=== PATIENT | female | born 1930 | race Hispanic/Latino ===

== ENCOUNTER 2017-04-06 19:00 | Emergency (ER) | payer MEDICARE ==
[2017-04-06 19:31] VITALS: BMI 34.7
[2017-04-06 19:38] VITALS: TEMP 98.7
[2017-04-06] MEDS ORDERED: Sodium Chloride 0.9% 500 ML IV STA (20:17)
--- NOTE | 2017-04-06 20:33 | ED PDOC ---
Arrival/HPI - General Chief Complaint: Abdominal Pain Time Seen by Provider: 04/06/17 20:17 Historian: Patient - History of Present Illness Narrative History of Present Illness (Text): 04/06/17 20:29 Shena Turcios is an 86 year old female, whose past medical history includes diverticulitis, who presents to the emergency department complaining of worsening flank pain today. Patient denies any urinary complaint, nausea, diarrhea, chest pain, shortness of breath, or any other complaints at this time. Time/Duration: 4-6 hours Symptom Onset: Gradual Symptom Course: Worsening Severity Level: Mild Context: Home Past Medical History - Provider Review Nursing Documentation Reviewed: Yes - Infectious Disease Hx of Infectious Diseases: None - Tetanus Immunization Tetanus Immunization: Unknown - Reproductive Menopause: Yes - Cardiac Hx [place]: Yes Hx Peripheral Vascular Disease: Yes - Neurological Hx Paralysis: No - Hematological/Oncological Hx Blood Transfusions: No - Musculoskeletal/Rheumatological Hx Musculoskeletal Disorders: Yes - Gastrointestinal Hx Diverticulitis: Yes - Psychiatric Hx Substance Use: No - Past Surgical History Past Surgical History: No Previous - Surgical History Other/Comment: R leg bypass - Anesthesia Hx Anesthesia Reactions: No Hx Malignant Hyperthermia: No - Suicidal Assessment Feels Threatened In Home Enviroment: No Family/Social History - Physician Review Nursing Documentation Reviewed: Yes Family/Social History: No Known Family HX Smoking Status: Former Smoker Hx Alcohol Use: Yes (WINE) Hx Substance Use: No Hx Substance Use Treatment: No Allergies/Home Meds Allergies/Adverse Reactions: Allergies Penicillins Allergy (Intermediate, Verified 06/08/15 09:22) RASH/PAIN Home Medications: Home Meds Medication Instructions Recorded Confirmed Valsartan/Hydrochlorothiazide 1 tab PO QAM 10/26/12 04/06/17 [Valsartan and Hydrochlorothiazide 25 mg-320 M] Amlodipine Besylate [Norvasc] 5 mg PO QAM 06/04/15 04/06/17 Aspirin [Ecotrin] 81 mg PO QAM 06/04/15 04/06/17 Rosuvastatin Calcium [Crestor] 5 mg PO HS 04/06/17 04/06/17 Review of Systems - Physician Review All systems were reviewed & negative as marked: Yes - Review of Systems Constitutional: absent: Fevers, Night Sweats Eyes: absent: Vision Changes ENT: absent: Hearing Changes Respiratory: absent: SOB, Cough Cardiovascular: absent: Chest Pain Gastrointestinal: absent: Abdominal Pain Genitourinary Female: absent: Dysuria Musculoskeletal: Other (Worsening flank pain) Skin: absent: Rash, Pruritis Neurological: absent: Headache Endocrine: absent: Diaphoresis Hemo/Lymphatic: absent: Adenopathy Psychiatric: absent: Anxiety, Depression Physical Exam Vital Signs Reviewed: Yes Vital Signs Temp Pulse Resp BP Pulse Ox 04/06/17 22:42 52 L 20 142/91 H 95 04/06/17 19:01 98.7 F 58 L 18 191/69 H 96 Temperature: Afebrile Blood Pressure: Hypertensive Pulse: Bradycardic Respiratory Rate: Normal Appearance: Positive for: Well-Appearing, Non-Toxic, Comfortable Pain Distress: None Mental Status: Positive for: Alert and Oriented X 3 - Systems Exam Head: Present: Atraumatic, Normocephalic Pupils: Present: PERRL Extroacular Muscles: Present: EOMI Conjunctiva: Present: Normal Mouth: Present: Moist Mucous Membranes Neck: Present: Normal Range of Motion Respiratory/Chest: Present: Clear to Auscultation, Good Air Exchange. No: Respiratory Distress, Accessory Muscle Use Cardiovascular: Present: Regular Rate and Rhythm, Normal S1, S2. No: Murmurs Abdomen: Present: Normal Bowel Sounds. No: Tenderness, Distention, Peritoneal Signs Back: Present: Normal Inspection Upper Extremity: Present: Normal Inspection. No: Cyanosis, Edema Lower Extremity: Present: Normal Inspection. No: Edema Neurological: Present: GCS=15, CN II-XII Intact, Speech Normal Skin: Present: Warm, Dry, Normal Color. No: Rashes Psychiatric: Present: Alert, Oriented x 3, Normal Insight, Normal Concentration Medical Decision Making ED Course and Treatment: 04/06/17 20:32 Impression: 86 year old female complaining of worsening flank pain today. Plan: -- Urinalysis -- Labs -- Reglan, Zofran, and IV fluids -- Reassess and disposition Prior Visits: Notes and results from previous visits were reviewed. Patient was last seen in the emergency department on 11/16/15 for one month duration of complaining of right flank pain. Patient was discharged home. Progress Notes: 04/06/17 23:01 Creatinine at based. CBC WNL. UA positive for infection CT shows 1. No CT evidence of obstructing urolithiasis. 2. Diverticulosis without definite CT evidence of diverticulitis. 3. Pulmonary nodules. For low-risk patients, no follow-up is necessary. For high -risk patients (smoking history or other known risk factors) an optional CT at 12 months could be performed. 4. Liver lesion. No follow-up is necessary. 5. Incidental/non-acute findings are described above Patient is afebrile well appearing with soft NT/ND abdomen. Tolerating po. Daughter and patient given detailed return instructions. - Lab Interpretations Lab Results: 04/06/17 20:30 04/06/17 20:30 Lab Results 04/06/17 20:30: Sodium 143, Potassium 4.1, Chloride 107, Carbon Dioxide 23, Anion Gap 17, BUN 37 H, Creatinine 1.4 H, Est GFR ( Amer) 43, Est GFR ( Non-Af Amer) 36, Random Glucose 106, Calcium 10.2, Total Bilirubin 0.5, AST 29, ALT 32, Alkaline Phosphatase 68, Total Protein 7.5, Albumin 4.5, Globulin 3.0, Albumin/Globulin Ratio 1.5, Lipase 225 04/06/17 20:30: Urine Color Yellow, Urine Appearance Clear, Urine pH 5.5, Ur Specific [place] 1.015, Urine Protein 100 H, Urine Glucose (UA) Negative, Urine Ketones Negative, Urine Blood Negative, Urine Nitrate Positive H, Urine Bilirubin Negative, Urine Urobilinogen 0.2, Ur Leukocyte Esterase Moderate H, Urine RBC 1 - 3, Urine WBC 20 - 25, Ur Epithelial Cells 6 - 8, Amorphous Sediment Few, Urine Bacteria Many, Urine Other [place] 04/06/17 20:30: WBC 5.8, RBC 4.70, Hgb 14.0, Hct 42.5, MCV 90.4, MCH 29.8, MCHC 32.9, RDW 13.8, Plt Count 154, MPV 11.5 H, Gran % 62.8, Lymph % (Auto) 24.4, [place] % (Auto) 7.8 H, Eos % (Auto) 4.5, Baso % (Auto) 0.5, Gran # 3.63, Lymph # ( Auto) 1.4, [place] # (Auto) 0.5, Eos # (Auto) 0.3, Baso # (Auto) 0.03 I have reviewed the lab results: Yes - RAD Interpretation Radiology Orders: 04/06/17 21:01 ABD & PELVIS W/O PO OR IV CONT [CT] Stat - Medication Orders Current Medication Orders: Discontinued Medications Sodium Chloride (Sodium Chloride 0.9%) 500 mls @ 999 mls/hr IV .Q31M STA Stop: 04/06/17 20:47 Last Admin: 04/06/17 21:29 Dose: 999 mls/hr eMAR Start Stop Document 04/06/17 21:29 CNR (Rec: 04/06/17 21:29 [place] [facility] [id number] Intravenous Solution Start Date 04/06/17 Start Time 21:29 Metoclopramide HCl (Reglan) 10 mg IVP STAT STA Stop: 04/06/17 20:18 Last Admin: 04/06/17 21:29 Dose: 10 mg IVP Administration Document 04/06/17 21:29 CNR (Rec: 04/06/17 21:29 [place] [facility] [id number] Charges for Administration # of IVP Administrations 1 Ondansetron HCl (Zofran Inj) 4 mg IVP STAT STA Stop: 04/06/17 20:18 Last Admin: 04/06/17 21:29 Dose: 4 mg IVP Administration Document 04/06/17 21:29 CNR (Rec: 04/06/17 21:29 CNR [facility] [id number]) Charges for Administration # of IVP Administrations 1 Trimethoprim/Sulfamethoxazole (Bactrim Ds Tab) 1 tab PO STAT STA PRN Reason: Protocol Stop: 04/06/17 21:53 Last Admin: 04/06/17 22:42 Dose: 1 tab - Scribe Statement The provider has reviewed the documentation as recorded by the Ivan Riggs Provider Scribe Attestation: All medical record entries made by the Valerieibjose enrique were at my direction and personally dictated by me. I have reviewed the chart and agree that the record accurately reflects my personal performance of the history, physical exam, medical decision making, and the department course for this patient. I have also personally directed, reviewed, and agree with the discharge instructions and disposition. Disposition/Present on Arrival - Present on Arrival Any Indicators Present on Arrival: No History of DVT/PE: No History of Uncontrolled Diabetes: No Urinary Catheter: No History of Decub. Ulcer: No History Surgical Site Infection Following: None - Disposition Have Diagnosis and Disposition been Completed?: Yes Diagnosis: Pulmonary nodule, UTI (urinary tract infection), Diverticulosis Disposition: HOME/ ROUTINE Disposition Time: 23:01 Patient Plan: Discharge Patient Problems: Current Active Problems Problem Status Onset Pulmonary nodule Acute UTI (urinary tract infection) Acute Diverticulosis Acute Condition: GOOD Discharge Instructions (ExitCare): Urinary Tract Infection in Women (ED) Additional Instructions: Take full course of antibiotics. Return to ED if condition worsens. Follow-up with PMD within 2 days. Prescriptions: Sulfamethoxazole/Trimethoprim [Bactrim DS 800 mg-160 mg] 1 tab PO BID #20 tab Referrals: [facility] Laura Del Cid, [Non-Staff] - Follow up with primary Forms: [employer] (K[place]akh)
[2017-04-06 20:55] LABS: ALB/GLOB RATIO 1.5 (1.1-1.8); ALBUMIN 4.5 g/dL (3.0-4.8); CALCIUM 10.2 mg/dL (8.4-10.5)
[2017-04-06 20:56] LABS: PH,URINE 5.5 (4.7-8.0); URINE BILIRUBIN NEGATIVE (NEGATIVE); URINE BLOOD NEGATIVE (NEGATIVE); URINE GLUCOSE (UA) NEGATIVE (NEGATIVE); URINE LEUKOCYTE ESTERASE MODERATE Leu/uL (NEGATIVE); URINE NITRATE POSITIVE (NEGATIVE); URINE PROTEIN 100 mg/dL (<30 mg/dL); URINE UROBILINOGEN 0.2 E.U./dL (<1 E.U./dL)
[2017-04-06 20:57] LABS: URINE APPEARANCE CLEAR (CLEAR); URINE COLOR YELLOW (YELLOW)
[2017-04-06 20:58] LABS: BASO # 0.03 K/mm3 (0.0-2.0); BASO % 0.5 % (0.0-3.0); EOS # 0.3 (0.0-0.7); EOS % 4.5 % (1.5-5.0); GRAN # 3.63 (1.4-6.5); GRAN % 62.8 % (50.0-68.0); LYMPH # 1.4 (1.2-3.4); LYMPH % 24.4 % (22.0-35.0); MEAN CELL VOLUME 90.4 fl (80.0-105.0); MEAN CORPUSCULAR HEMOGLOBIN 29.8 pg (25.0-35.0); MEAN CORPUSCULAR HGB CONC 32.9 g/dl (31.0-37.0); MEAN PLATELET VOLUME 11.5 fl (7.0-11.0); MONO # 0.5 (0.1-0.6); MONO % 7.8 % (1.0-6.0); RBC 4.7 10^6/uL (3.5-6.1); RED CELL DISTRIBUTION WIDTH 13.8 % (11.5-14.5); WHITE BLOOD COUNT 5.8 10^3/ul (4.5-11.0)
[2017-04-06 21:19] LABS: URINE BACTERIA MANY (NEG); URINE WBC 20 - 25 /hpf (0-6)
[2017-04-06 21:20] LABS: URINE AMORPHOUS SEDIMENT FEW
[2017-04-06] MEDS ORDERED: cefTRIAXone (Rocephin) 1 gm Inj IVPB STA (21:32)
[2017-04-06] MEDS ORDERED: cefTRIAXone 1 GM/100 ML BAG IVPB STA (21:45)
[2017-04-06] MEDS ORDERED: Tmp-Smz 800 mg-160 mg DS Tab PO STA (21:52)
[2017-04-06 22:43] VITALS: BP 142/91; PULSE 52; RESP 20; O2SAT 95
--- NOTE | 2017-04-06 22:59 | CT ---
EXAM: CT Abdomen and Pelvis Without Intravenous Contrast CLINICAL HISTORY: 86 years old, female; Pain; Abdominal pain; Flank; Right; Additional info: R flank pain TECHNIQUE: Axial computed tomography images of the abdomen and pelvis without intravenous contrast. All CT scans at this facility use one or more dose reduction techniques, viz.: automated exposure control; ma/kV adjustment per patient size (including targeted exams where dose is matched to indication; i.e. head); or iterative reconstruction technique. Coronal and sagittal reformatted images were created and reviewed. COMPARISON: US - ABDOMEN COMPLETE 2015-11-16 15:02 FINDINGS: Lower thorax: Mild cardiomegaly. Coronary artery calcifications. Mild atelectasis/fibrosis. Few pulmonary nodules, up to 0.5 cm. Small hiatal hernia. ABDOMEN: Liver: Low-attenuation lesion with benign imaging features. Gallbladder and bile ducts: No calcified stones. No ductal dilation. Pancreas: Unremarkable. No ductal dilation. Spleen: No splenomegaly. Adrenals: No mass. Kidneys and ureters: Punctate calculus/calcification within LEFT kidney. Subcentimeter hyperdense lesion within right kidney, likely proteinaceous/hemorrhagic cyst. No hydronephrosis. Stomach and bowel: Small lipoma versus ingested contents within proximal duodenum. Multiple scattered diverticula within colon. No associated inflammatory stranding. No definite mural thickening. No obstruction. Appendix: Normal caliber. No inflammation. PELVIS: Bladder: Unremarkable. No stones. Reproductive: Unremarkable as visualized. ABDOMEN and PELVIS: Intraperitoneal space: No significant fluid collection. No free air. Bones/joints: Degenerative changes of spine. No acute fracture. Soft tissues: Unremarkable. Vasculature: Moderate to extensive atherosclerotic disease. No aneurysm. Lymph nodes: No pathologically enlarged lymph nodes. IMPRESSION: 1. No CT evidence of obstructing urolithiasis. 2. Diverticulosis without definite CT evidence of diverticulitis. 3. Pulmonary nodules. For low-risk patients, no follow-up is necessary. For high-risk patients (smoking history or other known risk factors) an optional CT at 12 months could be performed. 4. Liver lesion. No follow-up is necessary. 5. Incidental/non-acute findings are described above.
== END 2017-04-06 23:12 | disposition home or self-care (01) ==
LOC: ED 19:00
DX: K57.90 Diverticulosis of intestine, part unspecified, without perforation or abscess without bleeding (principal); N39.0 Urinary tract infection, site not specified; R91.8 Other nonspecific abnormal finding of lung field
CPT/HCPCS: 74176; 80053; 81001; 83690; 85025; 87086; 96374; 96375; 99284; J2405; J2765; J7040

== ENCOUNTER 2017-06-03 21:46 | Observation (INO) | payer MEDICARE ==
--- NOTE | 2017-06-03 21:59 | ED PDOC ---
Arrival/HPI - General Time Seen by Provider: 06/03/17 21:51 Historian: Patient - History of Present Illness Narrative History of Present Illness (Text): 06/03/17 21:59 Shena Turcios is an 86 year old female, whose past medical history includes [place], CAD, and hypertension, who presents to the ED complaining of lower extremity weakness. Patient states she was sitting at home watching TV and reports she began experiencing lower extremity weakness and near-syncopal when she stood up. Patient states she was unable to stand secondary to weakness, but notes she did not fall to the floor. Patient states she was able to maneuver herself in to a chair. Daughter notes patient's blood pressure was elevated at home, around 200 systolic. Patient denies any focal neurological deficits, vision changes, headache, dizziness, chest pain, shortness of breath, nausea, vomiting , or any other complaints. PMD: Dr. [employer] Software Test Automation Engineer: Dr. Howard Symptom Onset: Gradual Symptom Course: Unchanged Activities at Onset: Light Context: Home Past Medical History - Provider Review Nursing Documentation Reviewed: Yes - Infectious Disease Hx of Infectious Diseases: None - Tetanus Immunization Tetanus Immunization: Unknown - Cardiac Hx [place]: Yes Hx Peripheral Vascular Disease: Yes - Neurological Hx Paralysis: No - Hematological/Oncological Hx Blood Transfusions: No - Musculoskeletal/Rheumatological Hx Musculoskeletal Disorders: Yes - Gastrointestinal Hx Diverticulitis: Yes - Psychiatric Hx Substance Use: No - Past Surgical History Past Surgical History: No Previous - Surgical History Other/Comment: R leg bypass - Anesthesia Hx Anesthesia Reactions: No Hx Malignant Hyperthermia: No - Suicidal Assessment Feels Threatened In Home Enviroment: No Family/Social History - Physician Review Nursing Documentation Reviewed: Yes Family/Social History: Unknown Family HX Smoking Status: Former Smoker Hx Alcohol Use: Yes (WINE) Hx Substance Use: No Hx Substance Use Treatment: No Allergies/Home Meds Allergies/Adverse Reactions: Allergies Penicillins Allergy (Intermediate, Verified 06/08/15 09:22) RASH/PAIN Review of Systems - Physician Review All systems were reviewed & negative as marked: Yes - Review of Systems Constitutional: Normal. absent: Fevers Eyes: Normal ENT: Normal Respiratory: Normal. absent: SOB, Cough Cardiovascular: Other (+high blood pressure, +near-syncopal). absent: Chest Pain Gastrointestinal: Normal. absent: Abdominal Pain, Diarrhea, Nausea, Vomiting Genitourinary Female: Normal. absent: Dysuria, Frequency, Hematuria, Urine Output Changes Musculoskeletal: Normal. absent: Back Pain, Neck Pain Skin: Normal. absent: Rash Neurological: Normal. absent: Headache, Dizziness Endocrine: Normal Hemo/Lymphatic: Normal Psychiatric: Normal Physical Exam Vital Signs Reviewed: Yes Vital Signs Temp Pulse Resp BP Pulse Ox 06/04/17 01:01 97.7 F 62 18 156/83 H 97 06/03/17 23:11 61 18 115/88 97 06/03/17 21:50 98.1 F 93 H 18 170/77 H 97 Temperature: Afebrile Blood Pressure: Hypertensive Pulse: Regular Respiratory Rate: Normal Appearance: Positive for: Well-Appearing, Non-Toxic, Comfortable Pain Distress: None Mental Status: Positive for: Alert and Oriented X 3 - Systems Exam Head: Present: Atraumatic, Normocephalic Pupils: Present: PERRL Extroacular Muscles: Present: EOMI Conjunctiva: Present: Normal Ears: Present: Normal, NORMAL TM, Normal Canal. No: Erythema, TM Bulging, Fluid , TM Perf Mouth: Present: Moist Mucous Membranes Pharnyx: Present: Normal. No: ERYTHEMA, EXUDATE, TONSILS ENLARGED, Peritonsilar Swelling, Uvular Deviation, Muffled/Hoarse Voice, Str[place], Soft Palate/Uvular Edema Nose (External): Present: Atraumatic Nose (Internal): Present: Normal Inspection Neck: Present: Normal Range of Motion. No: Meningeal Signs, MIDLINE TENDERNESS , Paraspinal Tenderness Respiratory/Chest: Present: Clear to Auscultation, Good Air Exchange. No: Respiratory Distress, Accessory Muscle Use Cardiovascular: Present: Regular Rate and Rhythm, Normal S1, S2. No: Murmurs Abdomen: No: Tenderness, Distention, Peritoneal Signs Back: Present: Normal Inspection. No: CVA Tenderness, Midline Tenderness, Paraspinal Tenderness Upper Extremity: Present: Normal Inspection. No: Cyanosis, Edema Lower Extremity: Present: Normal Inspection. No: Edema Neurological: Present: GCS=15, CN II-XII Intact, Speech Normal, Motor Func Grossly Intact, Normal Sensory Function, Normal Cerebellar Funct, Memory Normal Skin: Present: Warm, Dry, Normal Color. No: Rashes Psychiatric: Present: Alert, Oriented x 3, Normal Insight, Normal Concentration Medical Decision Making ED Course and Treatment: 06/03/17 21:59 Impression: 86 year old female c/o lower extremity weakness and near-syncope. Plan: -- CT Head w/o contrast -- EKG -- CXR -- Labs, troponin -- UA, urine cultures -- Reassess and disposition Prior Visits: Notes and results from previous visits were reviewed. On 04/06/2017, pt was seen in the Emergency department for worsening flank pain. Pt was d/c home. Progress Notes: Reviewed EKG, sinus rhythm at 60 bpm. PACs. Non-specific T wave changes. 06/03/17 23:50 Chest X-ray reviewed, shows no acute processes. 06/04/17 00:15 Case discussed with medical/surgery registered nurse court monitor, who is aware and agrees with plan. 06/04/17 00:[address] Cruz, who is aware and agrees with plan. Accepts pt in to hospitalist service. 06/04/17 00:32 CT Head shows: Brain: There is mild diffuse cerebral atrophy present, consistent with this patient's age. There is mild diffuse heterogeneity of the white matter attenuation, consistent with chronic white matter ischemic changes. 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 1 mm punctate calcification in the right centrum semiovale. No hemorrhage. Ventricles: The ventricular system demonstrates mild diffuse compensatory enlargement. Bones/joints: Unremarkable. No acute fracture. Soft tissues: Unremarkable. Sinuses: Unremarkable as visualized. No acute sinusitis. Mastoid air cells: Unremarkable as visualized. No mastoid effusion. IMPRESSION: Age-related atrophy and chronic white matter ischemic changes, with no evidence of an acute intracranial abnormality - Lab Interpretations Lab Results: 06/03/17 23:00 06/03/17 23:00 Lab Results 06/03/17 23:00: Urine Color Yellow, Urine Appearance Clear, Urine pH 6.0, Ur Specific [place] 1.025, Urine Protein 100 H, Urine Glucose (UA) Negative, Urine Ketones Negative, Urine Blood Negative, Urine Nitrate Negative, Urine Bilirubin Negative, Urine Urobilinogen 0.2, Ur Leukocyte Esterase Trace H, Urine RBC Negative, Urine WBC 10 - 15, Ur Epithelial Cells 6 - 8, Urine Bacteria Mod 06/03/17 23:00: Sodium 143, Potassium 4.5, Chloride 108 H, Carbon Dioxide 25, Anion Gap 14, BUN 51 H, Creatinine 1.6 H, Est GFR ( Amer) 37, Est GFR ( Non-Af Amer) 31, Random Glucose 103, Calcium 10.1, Total Bilirubin 0.4, AST 32, ALT 31, Alkaline Phosphatase 76, Troponin I 0.02 D, Total Protein 6.9, Albumin 4.0, Globulin 2.9, Albumin/Globulin Ratio 1.4 06/03/17 23:00: PT 10.2, INR 0.90 L, APTT 27.3 06/03/17 23:00: WBC 6.0, RBC 4.39, Hgb 13.1, Hct 39.3, MCV 89.5, MCH 29.8, MCHC 33.3, RDW 14.7 H, Plt Count 153, MPV 11.2 H, Gran % 68.7 H, Lymph % (Auto) 21.8 L, [place] % (Auto) 6.2 H, Eos % (Auto) 3.0, Baso % (Auto) 0.3, Gran # 4.10, Lymph # (Auto) 1.3, [place] # (Auto) 0.4, Eos # (Auto) 0.2, Baso # (Auto) 0.02 06/03/17 21:54: POC Glucose (mg/dL) 84 I have reviewed the lab results: Yes - RAD Interpretation Radiology Orders: 06/03/17 22:38 HEAD W/O CONTRAST [CT] Stat CHEST PORTABLE [RAD] Stat Police [employer] Dispatcher: ED Physician, Radiologist - EKG Interpretation Interpreted by ED Physician: Yes Type: 12 lead EKG - Medication Orders Current Medication Orders: Discontinued Medications Acetaminophen (Tylenol 325mg Tab) 650 mg PO STAT STA Stop: 06/04/17 21:30 Last Admin: 06/04/17 21:51 Dose: 650 mg MAR Pain/Vitals Document 06/04/17 21:51 LGA (Rec: 06/04/17 21:52 LGA [id number]) Pain Reassessment Is This A Pain ReAssessment? Yes Sleep Is patient sleeping during reassessment? No Presence of Pain Presence of Pain Yes Pain Scale Used Pain Scale Used Numeric Location Pain Location Body Textile Bag Sewer Description Intermittent Pain Behavior Restlessness Aggravating Factors Changing Position Alleviating Factors Medication Amlodipine Besylate (Norvasc) [facility] [place] Last Admin: 06/05/17 09:55 Dose: 5 mg MAR Pulse and Blood Pressure Document 06/05/17 09:55 KMS (Rec: 06/05/17 09:55 KMS [id number]) Pulse Pulse Rate (60-90) 65 Blood Pressure Blood Pressure (100/60-150/90) 140/60 Aspirin (Ecotrin) 81 mg PO QAM [facility] Last Admin: 06/05/17 09:56 Dose: 81 mg Atorvastatin Calcium (Lipitor) 20 mg PO HS [facility] Last Admin: 06/04/17 21:52 Dose: 20 mg Cholecalciferol (Vitamin D) 2,000 intlu PO DAILY [facility] Last Admin: 06/05/17 09:55 Dose: 2,000 intlu Ciprofloxacin (Cipro) 500 mg PO Q12 [facility] PRN Reason: Protocol Stop: 06/05/17 13:24 Last Admin: 06/05/17 09:56 Dose: 500 mg Ciprofloxacin (Cipro) 500 mg PO Q12 [facility] PRN Reason: Protocol Stop: 06/05/17 22:01 Last Admin: 06/05/17 09:56 Dose: Hydralazine HCl (Apresoline) 10 mg IVP STAT [facility] Stop: 06/04/17 02:46 Last Admin: 06/04/17 03:32 Dose: 10 mg IVP Administration Document 06/04/17 03:32 FG (Rec: 06/04/17 03:36 FG [id number]) Charges for Administration # of IVP Administrations 1 MAR Pulse and Blood Pressure Document 06/04/17 03:32 FG (Rec: 06/04/17 03:36 FG [id number]) Pulse Pulse Rate (60-90) 59 Blood Pressure Blood Pressure (100/60-150/90) 176/74 Sodium Chloride (Sodium Chloride 0.9%) 1,000 mls @ 80 mls/hr IV .[id number] [facility] Last Admin: 06/04/17 00:55 Dose: 80 mls/hr eMAR Start Stop Document 06/04/17 00:55 LA (Rec: 06/04/17 00:56 LA [id number]) Intravenous Solution Start Date 06/04/17 Start Time 00:56 Sodium Chloride (Sodium Chloride 0.9%) 250 mls @ 250 mls/hr IV .Q1H STA Stop: 06/04/17 03:56 Last Admin: 06/04/17 06:22 Dose: Sodium Chloride (Sodium Chloride 0.9%) 1,000 mls @ 75 mls/hr IV .[id number] [facility] Last Admin: 06/05/17 09:54 Dose: 75 mls/hr eMAR Start Stop Document 06/05/17 09:54 KMS (Rec: 06/05/17 09:54 KMS [id number]) Intravenous Solution Start Date 06/05/17 Start Time 07:05 Pantoprazole Sodium (Protonix Inj) 40 mg IVP DAILY [facility] Last Admin: 06/04/17 09:28 Dose: 40 mg IVP Administration Document 06/04/17 09:28 JFR (Rec: 06/04/17 09:28 JFR [id number]) Charges for Administration # of IVP Administrations 1 Pantoprazole Sodium (Protonix Ec Tab) 40 mg PO ACB [facility] Last Admin: 06/05/17 08:45 Dose: 40 mg Comments: med is late due to an 7:30 chest tube class that I was scheduled for. Valsartan (Diovan) 320 mg PO DAILY [facility] Last Admin: 06/05/17 09:55 Dose: 320 mg - Scribe Statement The provider has reviewed the documentation as recorded by the Valerieibjose enrique Baeza All medical record entries made by the Valerieibjose enrique were at my direction and personally dictated by me. I have reviewed the chart and agree that the record accurately reflects my personal performance of the history, physical exam, medical decision making, and the department course for this patient. I have also personally directed, reviewed, and agree with the discharge instructions and disposition. Disposition/Present on Arrival - Present on Arrival Any Indicators Present on Arrival: No History of DVT/PE: No History of Uncontrolled Diabetes: No Urinary Catheter: No History Surgical Site Infection Following: None - Disposition Have Diagnosis and Disposition been Completed?: Yes Diagnosis: Syncope Disposition: HOSPITALIZED Disposition Time: 00:30 Condition: GOOD
[2017-06-03 23:14] LABS: BASO # 0.02 K/mm3 (0.0-2.0); BASO % 0.3 % (0.0-3.0); EOS # 0.2 (0.0-0.7); GRAN # 4.1 (1.4-6.5); GRAN % 68.7 % (50.0-68.0); HEMOGLOBIN 13.1 g/dL (12.0-16.0); LYMPH # 1.3 (1.2-3.4); LYMPH % 21.8 % (22.0-35.0); MEAN CELL VOLUME 89.5 fl (80.0-105.0); MEAN CORPUSCULAR HEMOGLOBIN 29.8 pg (25.0-35.0); MEAN CORPUSCULAR HGB CONC 33.3 g/dl (31.0-37.0); MEAN PLATELET VOLUME 11.2 fl (7.0-11.0); MONO # 0.4 (0.1-0.6); MONO % 6.2 % (1.0-6.0); RBC 4.39 10^6/uL (3.5-6.1); RED CELL DISTRIBUTION WIDTH 14.7 % (11.5-14.5)
[2017-06-03 23:17] LABS: URINE BILIRUBIN NEGATIVE (NEGATIVE); URINE BLOOD NEGATIVE (NEGATIVE); URINE GLUCOSE (UA) NEGATIVE (NEGATIVE); URINE LEUKOCYTE ESTERASE TRACE Leu/uL (NEGATIVE); URINE PROTEIN 100 mg/dL (<30 mg/dL); URINE UROBILINOGEN 0.2 E.U./dL (<1 E.U./dL)
[2017-06-03 23:18] LABS: URINE APPEARANCE CLEAR (CLEAR); URINE COLOR YELLOW (YELLOW)
[2017-06-03 23:21] LABS: INR 0.9 (0.93-1.08); PARTIAL THROMBOPLASTIN TIME 27.3 Seconds (25.1-36.5); PROTHROMBIN TIME 10.2 SECONDS (9.4-12.5)
[2017-06-03 23:23] LABS: ALB/GLOB RATIO 1.4 (1.1-1.8); CALCIUM 10.1 mg/dL (8.4-10.5)
[2017-06-03 23:24] LABS: URINE BACTERIA MOD (NEG); URINE RBC NEGATIVE /hpf (0-2)
[2017-06-03 23:34] LABS: TROPONIN I 0.02 ng/mL
--- NOTE | 2017-06-04 00:28 | CT ---
EXAM: CT Head Without Intravenous Contrast CLINICAL HISTORY: 86 years old, female; Signs and symptoms; Dizziness; Additional info: Syncope TECHNIQUE: Axial computed tomography images of the head/brain without intravenous contrast. All CT scans at this facility use one or more dose reduction techniques, viz.: automated exposure control; ma/kV adjustment per patient size (including targeted exams where dose is matched to indication; i.e. head); or iterative reconstruction technique. Coronal and sagittal reformatted images were created and reviewed. COMPARISON: No relevant prior studies available. FINDINGS: Brain: There is mild diffuse cerebral atrophy present, consistent with this patient's age. There is mild diffuse heterogeneity of the white matter attenuation, consistent with chronic white matter ischemic changes. 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 1 mm punctate calcification in the right centrum semiovale. No hemorrhage. Ventricles: The ventricular system demonstrates mild diffuse compensatory enlargement. Bones/joints: Unremarkable. No acute fracture. Soft tissues: Unremarkable. Sinuses: Unremarkable as visualized. No acute sinusitis. Mastoid air cells: Unremarkable as visualized. No mastoid effusion. IMPRESSION: Age-related atrophy and chronic white matter ischemic changes, with no evidence of an acute intracranial abnormality.
[2017-06-04] MEDS ORDERED: Sodium Chloride 0.9% 1,000 ML IV SCH (00:45)
--- NOTE | 2017-06-04 01:02 | CP.PCM.HP ---
<Yesica Frias - Last Filed: 06/04/17 03:04> History of Present Illness - History of Present Illness History of Present Illness: Yesica Frias, PGY1, H&P for Dr Cruz: CC: near syncope, generalized weakness/numbness 86 year old female, with PMH CAD x 4 stents, ND, CKD, HTN, DJD, presents for a near syncopal episode that occured at 9 PM tonight. Pt states that she was in her usual state of health prior to this occurence. She was sitting at home watching TV, then she got up quickly, when she suddenly felt generalized weakness/numbness over her body. She was about to pass out," but she somehow managed to get herself into a chair. The "feeling" lasted for 5-6 minutes, after which she returned to her normal self. Denies confusion, urinary/bowel incontinence, dizziness, chest pain, sob, diaphoresis, palpitations, syncope, LOC, nausea, vomiting, tonic clonic movements, tongue biting, vision changes, focal neurologic deficits. Pt states that she has never has such an episode before. She states that her BP this morning at cardiac rehab was normal 140/ 80s. But when EMS came to her home, she was found to have SBP in 200s. In ED, pt hypertensive. BUN/Cr 51/1.6 (baseline Cr 1.4). UA + infection, not a clean catch. Head CT neg for acute changes. EKG NSR, no ST/T wave changes. CXR neg for infiltrates. On further questioning, pt denies headache, neck pain, fever, chills, cough, abdominal pain, diarrhea, constipation, dysuria, hematuria , frequency, leg swelling. 12 point ROS obtained and negative, as per HPI. PMD: Dr. Chi Boat Person: Dr. Howard PMH: HTN, PAD, CAD x 4 stents (last one 2015), ND, HLD, Diverticulitis, CKD, DJD PSH: right leg bypass, cardiac cath All: PCN - rash FH: Mother, colon cancer SH: former smoker (quit 20 years ago), prior: 1-2 ppdx40 years, drinks wine occasionally, no illicit drug use. Lives by self in apt, daughter lives upstairs. Home MedS: valsartan-HCTZ, norvasc, ASA 81, Rosuvastatin Present on Admission - Present on Admission Any Indicators Present on Admission: No History of DVT/PE: No History of Uncontrolled Diabetes: No Urinary Catheter: No Decubitus Ulcer Present: No Review of Systems - Review of Systems All systems: reviewed and no additional remarkable complaints except Review of Systems: as per HPI Past Patient History - Infectious Disease Hx of Infectious Diseases: None - Tetanus Immunizations Tetanus Immunization: Unknown - Past Social History Smoking Status: Former Smoker - CARDIAC Hx Heart Attack: Yes Hx Peripheral Vascular Disease: Yes - NEUROLOGICAL Hx Paralysis: No - HEMATOLOGICAL/ONCOLOGICAL Hx Blood Transfusions: No - MUSCULOSKELETAL/RHEUMATOLOGICAL Hx Musculoskeletal Disorders: Yes - GASTROINTESTINAL Hx Diverticulitis: Yes - PSYCHIATRIC Hx Substance Use: No - SURGICAL HISTORY Other/Comment: R leg bypass - ANESTHESIA Hx Anesthesia Reactions: No Hx Malignant Hyperthermia: No Meds Allergies/Adverse Reactions: Allergies Allergy/AdvReac Type Severity Reaction Status Date / Time Penicillins Allergy Intermediate RASH/PAIN Verified 06/08/15 09:22 Physical Exam - Constitutional Appears: Non-toxic, No Acute Distress, Older Than Stated Age - Head Exam Head Exam: ATRAUMATIC, NORMOCEPHALIC - Eye Exam Eye Exam: EOMI, PERRL. absent: Conjunctival injection, Nystagmus, Scleral icterus Pupil Exam: NORMAL ACCOMODATION, PERRL. absent: Fixed, Irregular, Miosis, Mydriatic, Unequal - ENT Exam ENT Exam: Mucous Membranes Moist - Neck Exam Neck exam: Positive for: Full Rom, Normal Inspection - Respiratory Exam Respiratory Exam: Clear to Auscultation Bilateral, NORMAL BREATHING PATTERN. absent: Accessory Muscle Use, Chest Wall Tenderness, Rales, Rhonchi, Wheezes, Respiratory Distress, Stridor - Cardiovascular Exam Cardiovascular Exam: RRR, +S1, +S2. absent: Systolic Murmur - GI/Abdominal Exam GI & Abdominal Exam: Normal Bowel Sounds, Soft. absent: Distended, Firm, Mass, Rebound, Rigid, Tenderness - Extremities Exam Extremities exam: Positive for: normal inspection. Negative for: calf tenderness, pedal edema - Back Exam Back exam: NORMAL INSPECTION - Neurological Exam Neurological exam: Alert, CN II-XII Intact, Oriented x3, Reflexes Normal - Expanded Neurological Exam Expanded Neurological exam: Protecting the Airway Patient oriented to: person, place, time Cranial nerves: EOM's Intact: Normal, Facial Palsey w/Forehead Movement: Normal , Facial Palsey w/o Forehead Movement: Normal, Facial Sensation: Normal, Gag Reflex: Normal, Nystagmus: Normal, Tongue Deviation: Normal Cerebellar Function: Finger to Nose: Normal, Heel to [place]: Normal, Romberg: Normal Upper motor neuron: Babinski Sign: Normal, Pronator Drift: Normal Sensory exam: Lower Extremity 2 Point Discrimination: Normal, Lower Extremity Light Touch: Normal, Lower Extremity Pin Prick: Normal, Upper Extremity 2 Point Discrimination: Normal, Upper Extremity Light Touch: Normal, Upper Extremity Pin Prick: Normal Neuro motor strength exam: Left Upper Extremity: 5, Right Upper Extremity: 5, Left Lower Extremity: 5, Right Lower Extremity: 5 DTR: Achilles Tendon Left: 2+, Achilles Tendon Right: 2+, Bicep Left: 2+, Bicep Right: 2+, Brachioradialis Left: 2+, Brachioradialis Right: 2+, Patellar Left: 2 +, Patellar Right: 2+, Tricep Left: 2+, Tricep Right: 2+ Coma Scale Eye Opening: SPONTANEOUS Coma Scale Motor Response: OBEYS COMMANDS Coma Scale Verbal: Oriented Coma Scale Total: 15 - Psychiatric Exam Psychiatric exam: Normal Affect, Normal Mood - Skin Skin Exam: Dry, Normal Color, Warm Results - Vital Signs Recent Vital Signs: Last Vital Signs Temp 98.1 F 06/03/17 21:50 Pulse 61 06/03/17 23:11 Resp 18 06/03/17 23:11 BP 115/88 06/03/17 23:11 Pulse Ox 97 06/03/17 23:11 - Labs Result Diagrams: 06/03/17 23:00 06/03/17 23:00 Labs: Laboratory Results - last 24 hr 06/03/17 06/03/17 06/03/17 21:54 23:00 23:00 WBC 6.0 RBC 4.39 Hgb 13.1 Hct 39.3 MCV 89.5 MCH 29.8 MCHC 33.3 RDW 14.7 H Plt Count 153 MPV 11.2 H Gran % 68.7 H Lymph % (Auto) 21.8 L [place] % (Auto) 6.2 H Eos % (Auto) 3.0 Baso % (Auto) 0.3 Gran # 4.10 Lymph # (Auto) 1.3 [place] # (Auto) 0.4 Eos # (Auto) 0.2 Baso # (Auto) 0.02 PT 10.2 INR 0.90 L APTT 27.3 Sodium Potassium Chloride Carbon Dioxide Anion Gap BUN Creatinine Est GFR ( Amer) Est GFR (Non-Af Amer) POC Glucose (mg/dL) 84 Random Glucose Calcium Total Bilirubin AST ALT Alkaline Phosphatase Troponin I Total Protein Albumin Globulin Albumin/Globulin Ratio Urine Color Urine Appearance Urine pH Ur Specific [place] Urine Protein Urine Glucose (UA) Urine Ketones Urine Blood Urine Nitrate Urine Bilirubin Urine Urobilinogen Ur Leukocyte Esterase Urine RBC Urine WBC Ur Epithelial Cells Urine Bacteria 06/03/17 06/03/17 23:00 23:00 WBC RBC Hgb Hct MCV MCH MCHC RDW Plt Count MPV Gran % Lymph % (Auto) [place] % (Auto) Eos % (Auto) Baso % (Auto) Gran # Lymph # (Auto) [place] # (Auto) Eos # (Auto) Baso # (Auto) PT INR APTT Sodium 143 Potassium 4.5 Chloride 108 H Carbon Dioxide 25 Anion Gap 14 BUN 51 H Creatinine 1.6 H Est GFR ( Amer) 37 Est GFR (Non-Af Amer) 31 POC Glucose (mg/dL) Random Glucose 103 Calcium 10.1 Total Bilirubin 0.4 AST 32 ALT 31 Alkaline Phosphatase 76 Troponin I 0.02 D Total Protein 6.9 Albumin 4.0 Globulin 2.9 Albumin/Globulin Ratio 1.4 Urine Color Yellow Urine Appearance Clear Urine pH 6.0 Ur Specific [place] 1.025 Urine Protein 100 H Urine Glucose (UA) Negative Urine Ketones Negative Urine Blood Negative Urine Nitrate Negative Urine Bilirubin Negative Urine Urobilinogen 0.2 Ur Leukocyte Esterase Trace H Urine RBC Negative Urine WBC 10 - 15 Ur Epithelial Cells 6 - 8 Urine Bacteria Mod Assessment & Plan - Assessment and Plan (Free Text) Assessment: 86 year old female c/o lower extremity weakness and near-syncope: Near syncope and generalized weakness/numbness: vasovagal (neurocardiogenic) syncope vs dehydration vs carotid hypersensitivity vs carotid artery stenosis vs medication related (HCTZ) vs cadiac syncope vs TIA vs flu vs vitamin B12/D deficiency vs infection (UTI), ruled out orthostatic hypotension (vasomotor) - tele monitor - Orthostatic VS negative in ED - Fall precautions - Neuro checks - CXR neg for infection - UA + infection, but also + epithelial cells. Repeat UA. Pt denies urinary symptoms. - TSH, B12, folate, Vitamin D - Head CT showed Age-related atrophy and chronic white matter ischemic changes, with no evidence of an acute intracranial abnormality. - echo 09/2016: EF 55%. LVH. Dilated LA. Mild MR, TR. no pulm HTN. - Carotid artery duplex - f/u flu test - Hold home HCTZ - NS @80 - Cardio and neuro consulted. F/u recs. ARIADNA on CKD: - NS 250 ml bolus - Gentle hydration - Daily CMP Hx of CAD/HTN: - Hypertensive in ED - c/w home ASA 81, Norvasc 5, Diovan 320 - cont to monitor PPX: Protonix, SCDs Diet: HHD Discussed with Dr Cruz. - Date & Time Date: 06/04/17 Time: 03:42 <Christian Cruz - Last Filed: 06/04/17 04:25> Results - Vital Signs Recent Vital Signs: Last Vital Signs Temp 97.8 F 06/04/17 03:46 Pulse 59 L 06/04/17 03:46 Resp 19 06/04/17 03:46 BP 176/74 H 06/04/17 03:46 Pulse Ox 97 06/04/17 01:01 - Labs Result Diagrams: 06/03/17 23:00 06/03/17 23:00 Attending/Attestation - Attestation I have personally seen and examined this patient.: Yes I have fully participated in the care of the patient.: Yes I have reviewed all pertinent clinical information: Yes Notes (Text): 06/04/17 04:24 Patient was seen when she was in the bed # 13 in the ER. Agree with history ,physical examination,assessment and plan.
[2017-06-04] MEDS ORDERED: Sodium Chloride 0.9% 250 ML IV STA (02:57)
[2017-06-04 04:10] VITALS: BMI 33.5
[2017-06-04 06:42] LABS: BASO # 0.03 K/mm3 (0.0-2.0); BASO % 0.6 % (0.0-3.0); EOS # 0.2 (0.0-0.7); EOS % 3.3 % (1.5-5.0); GRAN # 3.17 (1.4-6.5); GRAN % 61.9 % (50.0-68.0); HEMOGLOBIN 12.2 g/dL (12.0-16.0); LYMPH # 1.3 (1.2-3.4); LYMPH % 26.2 % (22.0-35.0); MEAN CELL VOLUME 88.8 fl (80.0-105.0); MEAN CORPUSCULAR HEMOGLOBIN 29.2 pg (25.0-35.0); MEAN CORPUSCULAR HGB CONC 32.9 g/dl (31.0-37.0); MEAN PLATELET VOLUME 11.1 fl (7.0-11.0); MONO # 0.4 (0.1-0.6); RBC 4.18 10^6/uL (3.5-6.1); RED CELL DISTRIBUTION WIDTH 14.8 % (11.5-14.5); WHITE BLOOD COUNT 5.1 10^3/ul (4.5-11.0)
[2017-06-04 07:00] VITALS: O2SAT 98
[2017-06-04 07:00] LABS: ALB/GLOB RATIO 1.3 (1.1-1.8); ALBUMIN 3.5 g/dL (3.0-4.8); CALCIUM 9.9 mg/dL (8.4-10.5)
--- NOTE | 2017-06-04 08:03 | RAD ---
HISTORY: syncope COMPARISON: 11/16/2015 FINDINGS: LUNGS: No active pulmonary disease. PLEURA: No significant pleural effusion identified, no pneumothorax apparent. CARDIOVASCULAR: Normal. OSSEOUS STRUCTURES: No significant abnormalities. VISUALIZED UPPER ABDOMEN: Normal. OTHER FINDINGS: None. IMPRESSION: No active disease.
[2017-06-04 08:09] LABS: TROPONIN I 0.03 ng/mL
--- NOTE | 2017-06-04 10:05 | CARD ---
APPROVED REPORT EKG Measurement Heart [id number] <Conclusion> Sinus rhythm with premature atrial complexes T wave abnormality, consider lateral ischemia No change
[2017-06-04 10:07] LABS: PH,URINE 6.5 (4.7-8.0); URINE BILIRUBIN NEGATIVE (NEGATIVE); URINE BLOOD NEGATIVE (NEGATIVE); URINE GLUCOSE (UA) NEGATIVE (NEGATIVE); URINE LEUKOCYTE ESTERASE SMALL Leu/uL (NEGATIVE); URINE PROTEIN 100 mg/dL (<30 mg/dL); URINE UROBILINOGEN 0.2 E.U./dL (<1 E.U./dL)
[2017-06-04 10:13] LABS: URINE APPEARANCE SL CLOUDY (CLEAR); URINE COLOR YELLOW (YELLOW)
[2017-06-04 10:31] LABS: URINE BACTERIA MANY (NEG); URINE RBC 0 - 2 /hpf (0-2)
[2017-06-04 10:36] LABS: URINE AMORPHOUS SEDIMENT FEW; URINE COARSE GRANULAR CAST TRACE /hpf (0-2)
--- NOTE | 2017-06-04 11:19 | CON ---
DATE: 06/04/2017 CARDIOLOGY CONSULTATION HISTORY: The patient is an 86-year-old woman, who developed transient weakness in the lower extremities. No syncope noted. The patient's past medical history is notable for hypertension, hypercholesterolemia and is status post PTCA and stent x4. Her last stress test less than a year ago was within normal limits. Her echocardiogram in 09/2016 revealed no aortic valve disease. The patient currently is asymptomatic and ambulating on the floor with the family and looks like a garcia parade. SOCIAL HISTORY: The patient does not smoke. REVIEW OF SYSTEMS: Fourteen-point review of systems reviewed in detail. No cardiac symptomatology noted. PHYSICAL EXAMINATION: VITAL SIGNS: Blood pressure is 154/68, heart rates in the 60s, normal sinus rhythm. NECK: Negative JVD. LUNGS: Without rales. HEART: Reveals S1, S2. EXTREMITIES: Without edema. LABORATORY DATA: Troponins are negative x2. BUN and creatinine are unremarkable. The hemoglobin is 12.2. IMPRESSION: 1. Stable angina. 2. Coronary artery disease. 3. Hypertension. 4. History of percutaneous transluminal coronary angioplasty and stent. 5. Hypercholesterolemia. 6. Transient weakness. PLAN: Given these findings, the patient's symptoms cannot be explained from any cardiac cause. The patient can potentially be mildly dehydrated based on her BUN and creatinine. Given these findings, there is no further cardiac workup is necessary. Although, carotid Dopplers were ordered. We will wait for carotid Dopplers. If negative, the patient can be discharged from a cardiac perspective. Baron Howard MD
[2017-06-04 12:52] LABS: HDL CHOLESTEROL 72 mg/dL (29-60)
[2017-06-04 13:02] LABS: LDL CHOLESTEROL 66 mg/dL (0-129)
--- NOTE | 2017-06-04 13:15 | CP.PCM.DIS ---
<Danya Howard - Last Filed: 06/05/17 13:26> Provider - Provider Date of Admission: 06/04/17 00:25 Attending physician: Marco A Pineda MD Primary care physician: Renny Chi MD Consults: Cardiology: Dr Howard Neurology: Dr Cain Time Spent in preparation of Discharge (in minutes): 32 Hospital Course - Lab Results Lab Results: Most Recent Lab Values WBC 5.1 10^3/ul (4.5-11.0) 06/04/17 05:30 RBC 4.18 10^6/uL (3.5-6.1) 06/04/17 05:30 Hgb 12.2 g/dL (12.0-16.0) 06/04/17 05:30 Hct 37.1 % (36.0-48.0) 06/04/17 05:30 MCV 88.8 fl (80.0-105.0) 06/04/17 05:30 MCH 29.2 pg (25.0-35.0) 06/04/17 05:30 MCHC 32.9 g/dl (31.0-37.0) 06/04/17 05:30 RDW 14.8 % (11.5-14.5) H 06/04/17 05:30 Plt Count 142 10^3/uL (120.0-450.0) 06/04/17 05:30 MPV 11.1 fl (7.0-11.0) H 06/04/17 05:30 Gran % 61.9 % (50.0-68.0) 06/04/17 05:30 Lymph % (Auto) 26.2 % (22.0-35.0) 06/04/17 05:30 [place] % (Auto) 8.0 % (1.0-6.0) H 06/04/17 05:30 Eos % (Auto) 3.3 % (1.5-5.0) 06/04/17 05:30 Baso % (Auto) 0.6 % (0.0-3.0) 06/04/17 05:30 Gran # 3.17 (1.4-6.5) 06/04/17 05:30 Lymph # (Auto) 1.3 (1.2-3.4) 06/04/17 05:30 [place] # (Auto) 0.4 (0.1-0.6) 06/04/17 05:30 Eos # (Auto) 0.2 (0.0-0.7) 06/04/17 05:30 Baso # (Auto) 0.03 K/mm3 (0.0-2.0) 06/04/17 05:30 PT 10.2 SECONDS (9.4-12.5) 06/03/17 23:00 INR 0.90 (0.93-1.08) L 06/03/17 23:00 APTT 27.3 Seconds (25.1-36.5) 06/03/17 23:00 Sodium 144 mmol/L (132-148) 06/04/17 05:30 Potassium 4.2 mmol/L (3.6-5.0) 06/04/17 05:30 Chloride 110 mmol/L (98-107) H 06/04/17 05:30 Carbon Dioxide 26 mmol/L (21-33) 06/04/17 05:30 Anion Gap 12 (10-20) 06/04/17 05:30 BUN 40 mg/dL (7-21) H 06/04/17 05:30 Creatinine 1.2 mg/dl (0.7-1.2) 06/04/17 05:30 Est GFR ( Amer) 52 06/04/17 05:30 Est GFR (Non-Af Amer) 43 06/04/17 05:30 POC Glucose (mg/dL) 84 mg/dL (65-110) 06/03/17 21:54 Random Glucose 115 mg/dL (70-110) H 06/04/17 05:30 Calcium 9.9 mg/dL (8.4-10.5) 06/04/17 05:30 Phosphorus 2.8 mg/dL (2.5-4.5) 06/04/17 05:30 Magnesium 2.0 mg/dL (1.7-2.2) 06/04/17 05:30 Total Bilirubin 0.4 mg/dL (0.2-1.3) 06/04/17 05:30 AST 35 U/L (14-36) 06/04/17 05:30 ALT 29 U/L (7-56) 06/04/17 05:30 Alkaline Phosphatase 55 U/L (38-126) 06/04/17 05:30 Lactate Dehydrogenase 531 U/L (333-699) 06/04/17 05:30 Total Creatine Kinase 138 U/L (35-230) 06/04/17 05:30 Troponin I 0.03 ng/mL D 06/04/17 05:30 Total Protein 6.3 g/dL (5.8-8.3) 06/04/17 05:30 Albumin 3.5 g/dL (3.0-4.8) 06/04/17 05:30 Globulin 2.8 gm/dL 06/04/17 05:30 Albumin/Globulin Ratio 1.3 (1.1-1.8) 06/04/17 05:30 Triglycerides 136 mg/dL (35-160) 06/04/17 12:35 Cholesterol 177 mg/dL (130-200) 06/04/17 12:35 LDL Cholesterol Direct 66 mg/dL (0-129) 06/04/17 12:35 HDL Cholesterol 72 mg/dL (29-60) H 06/04/17 12:35 TSH 3rd Generation 4.50 mIU/mL (0.46-4.68) 06/04/17 05:30 Urine Color Yellow (YELLOW) 06/04/17 09:49 Urine Appearance Sl cloudy (CLEAR) 06/04/17 09:49 Urine pH 6.5 (4.7-8.0) 06/04/17 09:49 Ur Specific [place] 1.020 (1.005-1.035) 06/04/17 09:49 Urine Protein 100 mg/dL (<30 mg/dL) H 06/04/17 09:49 Urine Glucose (UA) Negative mg/dL (NEGATIVE) 06/04/17 09:49 Urine Ketones Negative mg/dL (NEGATIVE) 06/04/17 09:49 Urine Blood Negative (NEGATIVE) 06/04/17 09:49 Urine Nitrate Negative (NEGATIVE) 06/04/17 09:49 Urine Bilirubin Negative (NEGATIVE) 06/04/17 09:49 Urine Urobilinogen 0.2 E.U./dL (<1 E.U./dL) 06/04/17 09:49 Ur Leukocyte Esterase Small [place]/uL (NEGATIVE) H 06/04/17 09:49 Urine RBC 0 - 2 /hpf (0-2) 06/04/17 09:49 Urine WBC 5 - 10 /hpf (0-6) 06/04/17 09:49 Ur Epithelial Cells 4 - 5 /hpf (0-5) 06/04/17 09:49 Amorphous Sediment Few 18 09:49 Urine Bacteria Many (NEG) 06/04/17 09:49 Coarse Granular Casts Trace /hpf (0-2) H 06/04/17 09:49 Urine Other Uyeast 06/04/17 09:49 - Hospital Course Hospital Course: History of Present Illness: Patient is a 86 year old female, with PMH CAD x 4 stents, ID, CKD, HTN, DJD, presents for a near syncopal episode that occured at 9 PM tonight. Pt states that she was in her usual state of health prior to this occurence. She was sitting at home watching TV, then she got up quickly, when she suddenly felt generalized weakness/numbness over her body. She was about to pass out," but she somehow managed to get herself into a chair. The "feeling" lasted for 5-6 minutes, after which she returned to her normal self. Denies confusion, urinary/ bowel incontinence, dizziness, chest pain, sob, diaphoresis, palpitations, syncope, LOC, nausea, vomiting, tonic clonic movements, tongue biting, vision changes, focal neurologic deficits. Pt states that she has never has such an episode before. She states that her BP this morning at cardiac rehab was normal 140/80s. But when EMS came to her home, she was found to have SBP in 200s. Hospital Course: Patient was admitted to Med/surg for observation. CT head showed age related changed, chronic white matter ischemic changes, no acute changes. EKG NSR, no ST /T wave changes. CXR neg for infiltrates. Neurology and Cardiology were consulted. Lipid panel was within normal limits. Orthostatic BP were also within normal limits. Troponins were negative x 2. Carotid Dopplers were completed, official read pending. CTA neck showed 50% stenosis of right and left internal carotid arteries. Unremarkable intracranial arteries. Enlarged left intraparotid gland lymph node versus primary parotid gland lesion. Neurology recommending continuing aspirin and plavix at this time. Patient was on plavix in the past and this was discontinued by Cardiology. Patient wants to continue Aspirin and Statin. Neurology is recommending to increase Aspirin to 325mg PO daily. Patient was clear from cardiac standpoint for discharge home. Patient was also cleared from Neurological standpoint. Urinanalysis showed trace leukocyte esterase and + protein. Urine cultures are growing gram negative rods, sensitivities are pending. Patient started on Ciprofloxacin for UTI. Patient presented with ARIADNA that improved with IV fluid hydration. On day of discharge, patient was ambulating the hallway. Denied headaches, dizziness, cp, palpitations, sob, abdominal pain, changes in bowel habits. Patient medically stable for discharge home. Patient to follow up with Dr Chi within 1 week. Also to continue course of antibiotics for UTI. Will follow up urine culture sensitivities and change antibiotics if needed. Patient will also need to follow up with Cardiology and Neurology upon discharge. Will refer to ENT for incidental CT findings of Enlarged left intraparotid gland lymph node versus primary parotid gland lesion. All medications reconciled and sent to [facility]. Medication List Ciprofloxacin 500mg PO Q12H x 6 days Norvasc 5mg PO daily Crestor 5mg PO HS ASA 325mg PO daily Vitamin D 2,000 Units daily Diovan 320mg PO daily Discharge Exam - Head Exam Head Exam: ATRAUMATIC, NORMOCEPHALIC - Eye Exam Eye Exam: EOMI, Normal appearance Pupil Exam: NORMAL ACCOMODATION - ENT Exam ENT Exam: Mucous Membranes Moist - Respiratory Exam Respiratory Exam: Clear to PA & Lateral, NORMAL BREATHING PATTERN, UNREMARKABLE. absent: Rhonchi, Wheezes, Respiratory Distress - Cardiovascular Exam Cardiovascular Exam: REGULAR RHYTHM, +S1, +S2 - GI/Abdominal Exam GI & Abdominal Exam: Normal Bowel Sounds, Soft, Unremarkable. absent: Guarding , Rebound, Tenderness - Extremities Exam Extremities exam: pedal pulses present - Neurological Exam Neurological exam: Alert, CN II-XII Intact, Normal Gait, Oriented x3, Reflexes Normal - Psychiatric Exam Psychiatric exam: Normal Affect, Normal Mood - Skin Skin Exam: Dry, Normal Color, Warm Discharge Plan - Discharge Medications Prescriptions: amLODIPine [Norvasc] 5 mg PO QAM #30 tab Aspirin 325 mg PO DAILY #30 tab Cholecalciferol [Vitamin D 1000 IU] 2,000 intlu PO DAILY #30 tab Ciprofloxacin [Cipro] 500 mg PO Q12H #12 tab Rosuvastatin Calcium [Crestor] 5 mg PO HS #30 tab Valsartan [Diovan] 320 mg PO DAILY #30 tab - Follow Up Plan Condition: GOOD Disposition: HOME/ ROUTINE Instructions: Syncope (Fainting) (DC) Additional Instructions: 1. Patient is medically clear for discharge home 2. Patient presented with Dehydration and Acute Kidney Injury, Discontinued Diovan/HCTZ and prescribed Diovan 320mg PO daily, Please follow up with PMD within 1 week 3. Continue antibiotics for Urinary Tract Infection, follow up urine cultures sensitivites 4. Will refer to ENT, Dr Gomes for enlarged parotid gland lymph node vs primary parotid gland lesion 5. If symptoms worsen, please return to Emergency Room Referrals: Renny Chi MD [Primary Care Provider] - <Marco A Pineda - Last Filed: 06/05/17 13:59> Provider - Provider Date of Admission: 06/04/17 00:25 Attending physician: Marco A Pineda MD Primary care physician: Renny Chi MD Time Spent in preparation of Discharge (in minutes): 35 Hospital Course - Lab Results Lab Results: Micro Results 06/04/17 07:22 Urine,Clean Catch Urine Culture - Preliminary Gram Negative [place] Most Recent Lab Values WBC 4.1 10^3/ul (4.5-11.0) L 06/05/17 06:30 RBC 4.24 10^6/uL (3.5-6.1) 06/05/17 06:30 Hgb 12.2 g/dL (12.0-16.0) 06/05/17 06:30 Hct 37.9 % (36.0-48.0) 06/05/17 06:30 MCV 89.4 fl (80.0-105.0) 06/05/17 06:30 MCH 28.8 pg (25.0-35.0) 06/05/17 06:30 MCHC 32.2 g/dl (31.0-37.0) 06/05/17 06:30 RDW 15.0 % (11.5-14.5) H 06/05/17 06:30 Plt Count 152 10^3/uL (120.0-450.0) 06/05/17 06:30 MPV 11.3 fl (7.0-11.0) H 06/05/17 06:30 Gran % 57.1 % (50.0-68.0) 06/05/17 06:30 Lymph % (Auto) 30.3 % (22.0-35.0) 06/05/17 06:30 [place] % (Auto) 7.0 % (1.0-6.0) H 06/05/17 06:30 Eos % (Auto) 4.6 % (1.5-5.0) 06/05/17 06:30 Baso % (Auto) 1.0 % (0.0-3.0) 06/05/17 06:30 Gran # 2.35 (1.4-6.5) 06/05/17 06:30 Lymph # (Auto) 1.3 (1.2-3.4) 06/05/17 06:30 [place] # (Auto) 0.3 (0.1-0.6) 06/05/17 06:30 Eos # (Auto) 0.2 (0.0-0.7) 06/05/17 06:30 Baso # (Auto) 0.04 K/mm3 (0.0-2.0) 06/05/17 06:30 PT 10.2 SECONDS (9.4-12.5) 06/03/17 23:00 INR 0.90 (0.93-1.08) L 06/03/17 23:00 APTT 27.3 Seconds (25.1-36.5) 06/03/17 23:00 Sodium 144 mmol/L (132-148) 06/05/17 06:30 Potassium 4.3 mmol/L (3.6-5.0) 06/05/17 06:30 Chloride 111 mmol/L (98-107) H 06/05/17 06:30 Carbon Dioxide 23 mmol/L (21-33) 06/05/17 06:30 Anion Gap 13 (10-20) 06/05/17 06:30 BUN 28 mg/dL (7-21) H 06/05/17 06:30 Creatinine 1.2 mg/dl (0.7-1.2) 06/05/17 06:30 Est GFR ( Amer) 52 06/05/17 06:30 Est GFR (Non-Af Amer) 43 06/05/17 06:30 POC Glucose (mg/dL) 84 mg/dL (65-110) 06/03/17 21:54 Random Glucose 105 mg/dL (70-110) 06/05/17 06:30 Calcium 9.8 mg/dL (8.4-10.5) 06/05/17 06:30 Phosphorus 3.6 mg/dL (2.5-4.5) 06/05/17 06:30 Magnesium 2.0 mg/dL (1.7-2.2) 06/05/17 06:30 Total Bilirubin 0.4 mg/dL (0.2-1.3) 06/05/17 06:30 AST 26 U/L (14-36) 06/05/17 06:30 ALT 27 U/L (7-56) 06/05/17 06:30 Alkaline Phosphatase 46 U/L (38-126) 06/05/17 06:30 Lactate Dehydrogenase 531 U/L (333-699) 06/04/17 05:30 Total Creatine Kinase 138 U/L (35-230) 06/04/17 05:30 Troponin I 0.03 ng/mL D 06/04/17 05:30 Total Protein 6.2 g/dL (5.8-8.3) 06/05/17 06:30 Albumin 3.6 g/dL (3.0-4.8) 06/05/17 06:30 Globulin 2.6 gm/dL 06/05/17 06:30 Albumin/Globulin Ratio 1.4 (1.1-1.8) 06/05/17 06:30 Triglycerides 136 mg/dL (35-160) 06/04/17 12:35 Cholesterol 177 mg/dL (130-200) 06/04/17 12:35 LDL Cholesterol Direct 66 mg/dL (0-129) 06/04/17 12:35 HDL Cholesterol 72 mg/dL (29-60) H 06/04/17 12:35 Vitamin B12 334 pg/mL (239-931) 06/04/17 05:30 25-OH Vitamin D Total 21.0 NG/ML (30.0-100.0) L 06/04/17 05:30 Folate 16.0 ng/mL 06/04/17 05:30 TSH 3rd Generation 4.50 mIU/mL (0.46-4.68) 06/04/17 05:30 Urine Color Yellow (YELLOW) 06/04/17 09:49 Urine Appearance Sl cloudy (CLEAR) 06/04/17 09:49 Urine pH 6.5 (4.7-8.0) 06/04/17 09:49 Ur Specific [place] 1.020 (1.005-1.035) 06/04/17 09:49 Urine Protein 100 mg/dL (<30 mg/dL) H 06/04/17 09:49 Urine Glucose (UA) Negative mg/dL (NEGATIVE) 06/04/17 09:49 Urine Ketones Negative mg/dL (NEGATIVE) 06/04/17 09:49 Urine Blood Negative (NEGATIVE) 06/04/17 09:49 Urine Nitrate Negative (NEGATIVE) 06/04/17 09:49 Urine Bilirubin Negative (NEGATIVE) 06/04/17 09:49 Urine Urobilinogen 0.2 E.U./dL (<1 E.U./dL) 06/04/17 09:49 Ur Leukocyte Esterase Small [place]/uL (NEGATIVE) H 06/04/17 09:49 Urine RBC 0 - 2 /hpf (0-2) 06/04/17 09:49 Urine WBC 5 - 10 /hpf (0-6) 06/04/17 09:49 Ur Epithelial Cells 4 - 5 /hpf (0-5) 06/04/17 09:49 Amorphous Sediment Few 06/04/17 09:49 Urine Bacteria Many (NEG) 06/04/17 09:49 Coarse Granular Casts Trace /hpf (0-2) H 06/04/17 09:49 Urine Other [place] 06/04/17 09:49 Attending/Attestation - Attestation I have personally seen and examined this patient.: Yes I have fully participated in the care of the patient.: Yes I have reviewed all pertinent clinical information, including history, physical exam and plan: Yes Notes (Text): 06/05/17 13:54 86 year old female with past medical history of CAD s/p stents, CKD and hypertension who presented with complaint of weakness and near syncopal episode. She had CT head which showed chronic white matter ischemic changes without any acute findings. She had carotid dopplers which showed 60-79% LICA stenosis. This was followed up with CTA head and neck which showed bilateral 50 % ICA stenosis. She is on aspirin and statin. Per cardiology and neurology her aspirin was increased to 325 mg. Upon presented she had mild acute on chronic renal failure which improved with IVF. She was also started on antibiotics for UTI. Patient is discharged home to follow up with her pmd. Follow up with cardiology and neurology. Follow up with vascular surgery. Follow up with ENT as above. Family is at bedside and questions were answered. Marco A Pineda MD Hospitalist.
--- NOTE | 2017-06-04 15:26 | CP.PCM.CON ---
<Leatha Beckham - Last Filed: 06/04/17 17:06> History of Present Illness - History of Present Illness History of Present Illness: Neurology Consult Note - Dr Cain CC: near syncope, generalized weakness/numbness HPI: 86 F with a PMHx of CAD x 4 stents, MT, CKD, and HTN that presented to [facility] [place] [facility] after an episode of loss of sensation and lightheadedness. Pt stated that she went to cardiac rehab in the morning yesterday without incident, came home and roughly at 9pm was sitting and upon stand up felt as if her whole body went numb and was able to catch herself on the wall and sit herself back down. Pt denied dizziness, loc, or incontinence. Pt stated that the loss of sensation lasted for approx 5 mins. Prior to arriving at the [facility] [place] [facility], EMS noted that her SBP was in the 200s. She usually takes her BP at home and is usually in the 140s. Pt was seen and examined at bedside with family present. Pt has no complaints at this time. Pt is tolerating po intake and moving bowels and bladder regularly. Pt denied fever chills, sob, chest pains, abdominal pains, nausea, vomiting, dysuria, diarrhea, or constipation. PMH: HTN, PAD, CAD x 4 stents (last one 2015), MT, HLD, Diverticulitis, CKD, DJD PSH: right leg bypass, cardiac cath All: PCN - rash FH: Mother, colon cancer SH: former smoker (quit 20 years ago), prior: 1-2 ppdx40 years, drinks wine occasionally, no illicit drug use. Lives by self in apt, daughter lives upstairs. Home MedS: valsartan-HCTZ, norvasc, ASA 81, Rosuvastatin Review of Systems - Review of Systems Review of Systems: as per HPI otherwise negative Past Patient History - Infectious Disease Hx of Infectious Diseases: None - Tetanus Immunizations Tetanus Immunization: Unknown - Past Social History Smoking Status: Never Smoked - CARDIAC Hx Hypertension: Yes - PULMONARY Hx Respiratory Disorders: No Hx Asthma: No Hx Bronchitis: No Hx Chronic Obstructive Pulmonary Disease (COPD): No Hx Emphysema: No Hx Pneumonia: No Hx Respiratory Aspiration: No Hx Respiratory Tract Infection: No Hx Sleep Apnea: No Hx Tuberculosis: No - NEUROLOGICAL Hx Neurological Disorder: No Hx Alzheimer's Disease: No HX Cerebrovascular Accident: No Hx Dementia: No Hx Dizziness: No Hx Meningitis: No Hx Migraine: No Hx Parkinson's Disease: No Hx Seizures: No Hx Transient Ischemic Attacks (TIA): No - HEENT Hx HEENT Problems: Yes Hx Blind: No Hx Cataracts: Yes 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.) Hx Difficulty Chewing: No Hx Epistaxis: No Hx Glaucoma: No Hx Macular Degeneration: No - RENAL Hx Chronic Kidney Disease: No Hx Dialysis: No Hx Kidney Stones: No Hx Neurogenic Bladder: No Hx Pyelonephritis: No Hx Renal (Kidney) Cancer: No Hx Renal Failure: No - ENDOCRINE/METABOLIC Hx Endocrine Disorders: No Hx Adrenal Cancer: No Hx Diabetes Insipidus: No Hx Diabetes Mellitus Type 1: No Hx Diabetes Mellitus Type 2: No Hx Hyperthyroidism: No Hx Hypothyroidism: No Hx Systemic Lupus Erythematosus: No - HEMATOLOGICAL/ONCOLOGICAL Hx Blood Disorders: No Hx AIDS: No Hx Anemia: No Hx Cancer: No Hx Chemotherapy: No Hx Cirrhosis: No Hx Hemophilia: No Hx Hepatitis A: No Hx Hepatitis B: No Hx Hepatitis C: No Hx Human Immunodeficiency Virus (HIV): No Hx Metastesis: No Hx Shingles: Yes Hx Sickle Cell Disease: No Hx Unexplained Bleeding: No - INTEGUMENTARY Hx Dermatological Problems: No Hx Basil Cell: No Hx Eczema: No Hx Melanoma: No Hx Psoriasis: No Hx Squamous Cell: No - MUSCULOSKELETAL/RHEUMATOLOGICAL Hx Arthritis: Yes Hx Back Pain: No Hx Degenerative Joint Disease: No Hx Falls: No Hx Fractures: No Hx Gout: No Hx Herniated Disk: No Hx Myasthenia Gravis: No Hx Osteoarthritis: No Hx Osteomyelitis: No Hx Osteoporosis: No Hx Rhabdomyolysis: No Hx Spinal Stenosis: No Hx Unsteady Gait: No - GASTROINTESTINAL Hx Gastrointestinal Disorders: Yes Hx Colostomy: No Hx Crohn's Disease: No Hx Diverticulitis: Yes Hx Gall Bladder Disease: No Hx Gastroesophageal Reflux: No Hx Ileostomy: No Hx Liver Failure: No Hx Pancreatitis: No HX Swallowing Problems: No Hx Ulcer: No - GENITOURINARY/GYNECOLOGICAL Hx Genitourinary Disorders: No Hx Hematuria: No Hx Incontinence: No Hx Sexually Transmitted Disorders: No Hx Urinary Tract Infection: Yes (Mar 2017) - PSYCHIATRIC Hx Psychophysiologic Disorder: No Hx Anxiety: No Hx Bipolar Disorder: No Hx Depression: No Hx Emotional Abuse: No Hx Hallucinations: No Hx Panic Symptoms: No Hx Paranoia: No Hx Post Traumatic Stress Disorder: No Hx Psychosis: No Hx Physical Abuse: No Hx Schizophrenia: No Hx Sexual Abuse: No - SURGICAL HISTORY Hx Surgeries: Yes Hx Amputation: No Hx Appendectomy: No Hx Cardiac Catheterization: Yes Hx Cholecystectomy: No Hx Coronary Stent: Yes Hx Gastric Bypass Surgery: No Hx Hysterectomy: No Hx Joint Replacement: No Hx Kidney Transplant: No Hx Liver Transplant: No Hx Mastectomy: No Hx Musculoskeletal Surgery: No Hx Open Heart Surgery: No Hx Orthopedic Surgery: No Hx Splenectomy: No Hx Valve Replacement: No - ANESTHESIA Hx Anesthesia Reactions: No Hx Malignant Hyperthermia: No Meds Allergies/Adverse Reactions: Allergies Allergy/AdvReac Type Severity Reaction Status Date / Time Penicillins Allergy Intermediate RASH/PAIN Verified 06/08/15 09:22 - Medications Medications: Current Medications Amlodipine Besylate (Norvasc) 5 mg PO QAM [facility] Last Admin: 06/04/17 09:28 Dose: 5 mg Aspirin (Ecotrin) 81 mg PO QAM [facility] Last Admin: 06/04/17 09:29 Dose: 81 mg Atorvastatin Calcium (Lipitor) 20 mg PO HS [facility] Ciprofloxacin (Cipro) 500 mg PO Q12 [facility] PRN Reason: Protocol Stop: 06/05/17 13:24 Last Admin: 06/04/17 13:57 Dose: 500 mg Pantoprazole Sodium (Protonix Ec Tab) 40 mg PO ACB [facility] Valsartan (Diovan) 320 mg PO DAILY [facility] Last Admin: 06/04/17 09:28 Dose: 320 mg Physical Exam - Constitutional Appears: No Acute Distress - Head Exam Head Exam: ATRAUMATIC, NORMAL INSPECTION, NORMOCEPHALIC - Eye Exam Eye Exam: EOMI, Normal appearance, PERRL Pupil Exam: NORMAL ACCOMODATION, PERRL - ENT Exam ENT Exam: Mucous Membranes Moist, Normal Exam - Neck Exam Neck exam: Positive for: Normal Inspection - Respiratory Exam Respiratory Exam: Clear to Auscultation Bilateral, NORMAL BREATHING PATTERN - Cardiovascular Exam Cardiovascular Exam: REGULAR RHYTHM, +S1, +S2 - GI/Abdominal Exam GI & Abdominal Exam: Normal Bowel Sounds, Soft. absent: Tenderness - Extremities Exam Extremities exam: Positive for: normal inspection - Back Exam Back exam: NORMAL INSPECTION - Neurological Exam Neurological exam: Alert, CN II-XII Intact, Normal Gait, Oriented x3, Reflexes Normal - Psychiatric Exam Psychiatric exam: Normal Affect, Normal Mood - Skin Skin Exam: Dry, Intact, Normal Color, Warm Results - Vital Signs Recent Vital Signs: Last Vital Signs Temp 97.7 F 06/04/17 12:00 Pulse 61 06/04/17 14:00 Resp 20 06/04/17 12:00 BP 100/64 06/04/17 12:00 Pulse Ox 98 06/04/17 06:00 - Labs Result Diagrams: 06/04/17 05:30 06/04/17 05:30 Labs: Laboratory Results - last 24 hr 06/04/17 06/04/17 06/04/17 05:30 05:30 05:30 WBC 5.1 RBC 4.18 Hgb 12.2 Hct 37.1 MCV 88.8 MCH 29.2 MCHC 32.9 RDW 14.8 H Plt Count 142 MPV 11.1 H Gran % 61.9 Lymph % (Auto) 26.2 [place] % (Auto) 8.0 H Eos % (Auto) 3.3 Baso % (Auto) 0.6 Gran # 3.17 Lymph # (Auto) 1.3 [place] # (Auto) 0.4 Eos # (Auto) 0.2 Baso # (Auto) 0.03 Sodium 144 Potassium 4.2 Chloride 110 H Carbon Dioxide 26 Anion Gap 12 BUN 40 H Creatinine 1.2 Est GFR ( Amer) 52 Est GFR (Non-Af Amer) 43 Random Glucose 115 H Calcium 9.9 Phosphorus Magnesium Total Bilirubin 0.4 AST 35 ALT 29 Alkaline Phosphatase 55 Lactate Dehydrogenase 531 Total Creatine Kinase 138 Troponin I 0.03 D Total Protein 6.3 Albumin 3.5 Globulin 2.8 Albumin/Globulin Ratio 1.3 Triglycerides Cholesterol LDL Cholesterol Direct HDL Cholesterol TSH 3rd Generation 4.50 Urine Color Urine Appearance Urine pH Ur Specific [place] Urine Protein Urine Glucose (UA) Urine Ketones Urine Blood Urine Nitrate Urine Bilirubin Urine Urobilinogen Ur Leukocyte Esterase Urine RBC Urine WBC Ur Epithelial Cells Amorphous Sediment Urine Bacteria Coarse Granular Casts Urine Other 06/04/17 06/04/17 06/04/17 05:30 09:49 12:35 WBC RBC Hgb Hct MCV MCH MCHC RDW Plt Count MPV Gran % Lymph % (Auto) [place] % (Auto) Eos % (Auto) Baso % (Auto) Gran # Lymph # (Auto) [place] # (Auto) Eos # (Auto) Baso # (Auto) Sodium Potassium Chloride Carbon Dioxide Anion Gap BUN Creatinine Est GFR ( Amer) Est GFR (Non-Af Amer) Random Glucose Calcium Phosphorus 2.8 Magnesium 2.0 Total Bilirubin AST ALT Alkaline Phosphatase Lactate Dehydrogenase Total Creatine Kinase Troponin I Total Protein Albumin Globulin Albumin/Globulin Ratio Triglycerides 136 Cholesterol 177 LDL Cholesterol Direct 66 HDL Cholesterol 72 H TSH 3rd Generation Urine Color Yellow Urine Appearance Sl cloudy Urine pH 6.5 Ur Specific [place] 1.020 Urine Protein 100 H Urine Glucose (UA) Negative Urine Ketones Negative Urine Blood Negative Urine Nitrate Negative Urine Bilirubin Negative Urine Urobilinogen 0.2 Ur Leukocyte Esterase Small H Urine RBC 0 - 2 Urine WBC 5 - 10 Ur Epithelial Cells 4 - 5 Amorphous Sediment Few Urine Bacteria Many Coarse Granular Casts Trace H Urine Other [place] Assessment & Plan - Assessment and Plan (Free Text) Assessment: 86 F with a PMHx of CAD x 4 stents, MT, CKD, and HTN that presented to [facility] [place] [facility] after an episode of loss of sensation and lightheadedness. Orthostatic VS negative in ED. Continue fall precautions, Head CT demonstrated age-related atrophy and chronic white matter ischemic changes, with no evidence of an acute intracranial abnormality. Most recent echo 09/2016: EF 55%. LVH. Dilated LA. Mild MR, TR. no pulm HTN. Carotid artery duplex Carotid doppler US demonstrated L ICA 60-90 stenosis and R ICa 50-69, we will recommend a diagnostic head and neck angiogram and consider stenting based on the results. Also will recommend adding plavix 75 mg daily to her regimen. <Lucio Cain - Last Filed: 06/05/17 15:33> Results - Vital Signs Recent Vital Signs: Last Vital Signs Temp 97.8 F 06/05/17 12:00 Pulse 64 06/05/17 12:00 Resp 18 06/05/17 12:00 BP 156/69 H 06/05/17 12:00 Pulse Ox 98 06/04/17 06:00 - Labs Result Diagrams: 06/05/17 06:30 06/05/17 06:30 Labs: Laboratory Results - last 24 hr 06/04/17 06/04/17 06/05/17 05:30 05:30 06:30 WBC 4.1 L RBC 4.24 Hgb 12.2 Hct 37.9 MCV 89.4 MCH 28.8 MCHC 32.2 RDW 15.0 H Plt Count 152 MPV 11.3 H Gran % 57.1 Lymph % (Auto) 30.3 [place] % (Auto) 7.0 H Eos % (Auto) 4.6 Baso % (Auto) 1.0 Gran # 2.35 Lymph # (Auto) 1.3 [place] # (Auto) 0.3 Eos # (Auto) 0.2 Baso # (Auto) 0.04 Sodium Potassium Chloride Carbon Dioxide Anion Gap BUN Creatinine Est GFR ( Amer) Est GFR (Non-Af Amer) Random Glucose Calcium Phosphorus Magnesium Total Bilirubin AST ALT Alkaline Phosphatase Total Protein Albumin Globulin Albumin/Globulin Ratio Vitamin B12 334 25-OH Vitamin D Total 21.0 L Folate 16.0 06/05/17 06:30 WBC RBC Hgb Hct MCV MCH MCHC RDW Plt Count MPV Gran % Lymph % (Auto) [place] % (Auto) Eos % (Auto) Baso % (Auto) Gran # Lymph # (Auto) [place] # (Auto) Eos # (Auto) Baso # (Auto) Sodium 144 Potassium 4.3 Chloride 111 H Carbon Dioxide 23 Anion Gap 13 BUN 28 H Creatinine 1.2 Est GFR ( Amer) 52 Est GFR (Non-Af Amer) 43 Random Glucose 105 Calcium 9.8 Phosphorus 3.6 Magnesium 2.0 Total Bilirubin 0.4 AST 26 ALT 27 Alkaline Phosphatase 46 Total Protein 6.2 Albumin 3.6 Globulin 2.6 Albumin/Globulin Ratio 1.4 Vitamin B12 25-OH Vitamin D Total Folate Attending/Attestation - Attestation I have personally seen and examined this patient.: Yes I have fully participated in the care of the patient.: Yes I have reviewed all pertinent clinical information: Yes
[2017-06-04] MEDS: Sodium Chloride 0.9% 1,000 ML IV SCH (18:44)
--- NOTE | 2017-06-04 19:06 | US ---
PROCEDURE: Bilateral carotid artery duplex ultrasound HISTORY: Carotid stenosis syncope PHYSICIAN(S): Baron Melgar MD. TECHNIQUE: Duplex sonography and color-flow Doppler were used to evaluate the carotid bifurcations and limited segments of the vertebral arteries bilaterally. FINDINGS: There is moderate to extensive focal heterogeneous echogenic plaque noted at the carotid bifurcations bilaterally. The peak systolic velocity in the proximal right internal carotid artery is 127 cm/sec. This corresponds to a 40-59 percent proximal right ICA stenosis. Moderately elevated systolic velocities are noted in the proximal right external carotid artery. There is antegrade flow in the right vertebral artery. The peak systolic velocity in the proximal left internal carotid artery is 200 cm/sec. This corresponds to a 60-79 percent proximal left ICA stenosis. Moderately elevated systolic velocities are noted in the proximal left external carotid artery. There is antegrade flow in the atretic left vertebral artery. IMPRESSION: 1. 60-79 percent proximal left ICA stenosis. 2. 40- 59 percent proximal right ICA stenosis. 3. Antegrade flow in both vertebral arteries.
--- NOTE | 2017-06-04 21:21 | CT ---
EXAM: CT Angiography Head With Intravenous Contrast CT Angiography Neck With Intravenous Contrast CLINICAL HISTORY: 86 years old, female; Screening exam; Carotid stenosis TECHNIQUE: Axial computed tomographic angiography images of the head and neck with intravenous contrast using CT angiography protocol. All CT scans at this facility use one or more dose reduction techniques, viz.: automated exposure control; ma/kV adjustment per patient size (including targeted exams where dose is matched to indication; i.e. head); or iterative reconstruction technique. MIP reconstructed images were created and reviewed. Coronal and sagittal reformatted images were created and reviewed. CONTRAST: 140 mL of OMNI 350 administered intravenously. COMPARISON: No relevant prior studies available. FINDINGS: HEAD: Right anterior cerebral artery: Unremarkable. No occlusion or significant stenosis. No aneurysm. Right middle cerebral artery: Unremarkable. No occlusion or significant stenosis. No aneurysm. Right posterior cerebral artery: Unremarkable. No occlusion or significant stenosis. No aneurysm. Left anterior cerebral artery: Unremarkable. No occlusion or significant stenosis. No aneurysm. Left middle cerebral artery: Unremarkable. No occlusion or significant stenosis. No aneurysm. Left posterior cerebral artery: Unremarkable. No occlusion or significant stenosis. No aneurysm. Basilar artery: Unremarkable. No occlusion or significant stenosis. No aneurysm. NECK: Right common carotid artery: No significant stenosis. No dissection or occlusion. Right internal carotid artery: 50% stenosis origin right internal carotid artery. No dissection or occlusion. Right external carotid artery: No occlusion. Right vertebral artery: Dominant right vertebral artery. No significant stenosis. No dissection or occlusion. Left common carotid artery: No significant stenosis. No dissection or occlusion. Left internal carotid artery: 50% stenosis origin of left internal carotid artery. No dissection or occlusion. Left external carotid artery: No occlusion. Left vertebral artery: No significant stenosis. No dissection or occlusion. Thyroid: Multiple right thyroid lobe nodules. HEAD and NECK: Bones/joints: Diffuse cervical spinal degenerative changes. No acute fracture. No dislocation. Soft tissues: 1.8 CM mass in deep lobe of left parotid gland. Enlarged intraparotid lymph node versus primary parotid gland lesion. CAROTID STENOSIS REFERENCE USING NASCET CRITERIA: % ICA stenosis = (1 - narrowest ICA diameter/diameter of distal cervical ICA) x 100. Mild - <50% stenosis. Moderate - 50-69% stenosis. Severe - 70-94% stenosis. Near occlusion - 95-99% stenosis. Occluded - 100% stenosis. IMPRESSION: 50% stenosis of right and left internal carotid arteries. Unremarkable intracranial arteries. Enlarged left intraparotid gland lymph node versus primary parotid gland lesion.
[2017-06-05 07:07] LABS: BASO # 0.04 K/mm3 (0.0-2.0); EOS # 0.2 (0.0-0.7); EOS % 4.6 % (1.5-5.0); GRAN # 2.35 (1.4-6.5); GRAN % 57.1 % (50.0-68.0); HEMOGLOBIN 12.2 g/dL (12.0-16.0); LYMPH # 1.3 (1.2-3.4); LYMPH % 30.3 % (22.0-35.0); MEAN CELL VOLUME 89.4 fl (80.0-105.0); MEAN CORPUSCULAR HEMOGLOBIN 28.8 pg (25.0-35.0); MEAN CORPUSCULAR HGB CONC 32.2 g/dl (31.0-37.0); MEAN PLATELET VOLUME 11.3 fl (7.0-11.0); MONO # 0.3 (0.1-0.6); RBC 4.24 10^6/uL (3.5-6.1); WHITE BLOOD COUNT 4.1 10^3/ul (4.5-11.0)
[2017-06-05 07:27] LABS: ALB/GLOB RATIO 1.4 (1.1-1.8); ALBUMIN 3.6 g/dL (3.0-4.8); CALCIUM 9.8 mg/dL (8.4-10.5)
[2017-06-05] MEDS ORDERED: Pantoprazole 40 mg EC Tab PO SCH (07:30)
[2017-06-05] MEDS ORDERED: Ergocalciferol 50,000 Intl Units Cap PO SCH (09:00)
[2017-06-05] MEDS: Sodium Chloride 0.9% 1,000 ML IV SCH (09:54)
[2017-06-05] MEDS ORDERED: Cholecalciferol 1,000 INTLU TAB PO SCH (10:00)
--- NOTE | 2017-06-05 11:43 | PN ---
DATE: 06/05/2017 CARDIOLOGY FOLLOWUP SUBJECTIVE: The patient is asymptomatic. OBJECTIVE: VITAL SIGNS: Blood pressure is 142/58, heart rate in the 60s. NECK: Negative JVD. LUNGS: Without rales. HEART: Reveals S1, S2. EXTREMITIES: Without edema. LABORATORY DATA: BUN and creatinine unremarkable. Hemoglobin is 12.2. Carotid MRI reveals a 50% carotid stenosis. IMPRESSION: 1. Status post syncope. 2. Coronary artery disease. 3. Peripheral vascular disease. 4. History of percutaneous transluminal coronary angioplasty. 5. Hypercholesterolemia. PLAN: Given these findings, I have discussed the results with the patient in detail. She should go home on aspirin and statin therapy. We will discontinue her Plavix. Followup instructions have been given to the patient in detail. Baron Howard MD
[2017-06-05 12:28] VITALS: BP 156/69; PULSE 64; RESP 18; TEMP 97.8
--- NOTE | 2017-06-05 14:23 | CP.PCM.PN ---
<Leatha Beckham - Last Filed: 06/05/17 14:23> Subjective - Date & Time of Evaluation Date of Evaluation: 06/05/17 Time of Evaluation: 09:00 - Subjective Subjective: Neurology Progress Report - Dr. Cain Pt was seen and examined at bedside. Pt has no complaints at this time. Pt tolerated CTA head and neck. Pt is tolerating po intake and moving bowels and bladder regularly. Pt denied fever, chills, sob, chest pains, abdominal pains, dizziness, lightheadedness, nausea, vomiting, diarrhea, constipation or dysuria. Objective - Vital Signs/Intake and Output Vital Signs (last 24 hours): Temp Pulse Resp BP Pulse Ox 97.8 F 64 18 156/69 H 98 06/05/17 12:00 06/05/17 12:00 06/05/17 12:00 06/05/17 12:00 06/04/17 06:00 Intake and Output: 06/05/17 06/05/17 06:59 18:59 Intake Total 240 Balance 240 - Labs Labs: 06/05/17 06:30 06/05/17 06:30 PT 10.2 SECONDS (9.4-12.5) 06/03/17 23:00 INR 0.90 (0.93-1.08) L 06/03/17 23:00 APTT 27.3 Seconds (25.1-36.5) 06/03/17 23:00 - Constitutional Appears: No Acute Distress - Head Exam Head Exam: ATRAUMATIC, NORMAL INSPECTION, NORMOCEPHALIC - Eye Exam Eye Exam: EOMI, Normal appearance, PERRL Pupil Exam: NORMAL ACCOMODATION, PERRL - ENT Exam ENT Exam: Mucous Membranes Moist, Normal Exam - Neck Exam Neck Exam: Full ROM, Normal Inspection. absent: Lymphadenopathy - Respiratory Exam Respiratory Exam: Decreased Breath Sounds, NORMAL BREATHING PATTERN - Cardiovascular Exam Cardiovascular Exam: REGULAR RHYTHM, +S1, +S2. absent: Murmur - GI/Abdominal Exam GI & Abdominal Exam: Soft, Normal Bowel Sounds. absent: Tenderness - Neurological Exam Neurological Exam: Alert, Awake, CN II-XII Intact, Normal Gait, Oriented x3 - Psychiatric Exam Psychiatric exam: Normal Affect, Normal Mood - Skin Skin Exam: Dry, Intact, Normal Color, Warm Assessment and Plan - Assessment and Plan (Free Text) Assessment: 86 F with a PMHx of CAD x 4 stents, [place], CKD, and HTN that presented to [facility] [place] [facility] after an episode of loss of sensation and lightheadedness. Carotid artery duplex Carotid doppler US demonstrated L ICA 60-90 stenosis and R ICA 50-69, CTA head and neck however demonstrated 50% bilateral stenosis. After discussing with cardio and primary, we have agreed to increasing aspirin to 325mg daily, and continue crestor. <Lucio Cain - Last Filed: 06/05/17 15:33> Objective - Vital Signs/Intake and Output Vital Signs (last 24 hours): Temp Pulse Resp BP Pulse Ox 97.8 F 64 18 156/69 H 98 06/05/17 12:00 06/05/17 12:00 06/05/17 12:00 06/05/17 12:00 06/04/17 06:00 Intake and Output: 06/05/17 06/05/17 06:59 18:59 Intake Total 240 Balance 240 - Labs Labs: 06/05/17 06:30 06/05/17 06:30 PT 10.2 SECONDS (9.4-12.5) 06/03/17 23:00 INR 0.90 (0.93-1.08) L 06/03/17 23:00 APTT 27.3 Seconds (25.1-36.5) 06/03/17 23:00 Attending/Attestation - Attestation I have personally seen and examined this patient.: Yes I have fully participated in the care of the patient.: Yes I have reviewed all pertinent clinical information, including history, physical exam and plan: Yes
== END 2017-06-05 13:07 | disposition home or self-care (01) ==
LOC: ED 21:46 → ERH 06-04 00:25 → 2RNO 06-04 02:59
PROVIDERS: ADMIT Hospitalist; ATTEND Internal Medicine
DX: I65.23 Occlusion and stenosis of bilateral carotid arteries (principal); N17.9 Acute kidney failure, unspecified; I12.9 Hypertensive chronic kidney disease with stage 1 through stage 4 chronic kidney disease, or unspecified chronic kidney disease; N18.9 Chronic kidney disease, unspecified; N39.0 Urinary tract infection, site not specified; I25.118 Atherosclerotic heart disease of native coronary artery with other forms of angina pectoris; R53.1 Weakness; E78.00 Pure hypercholesterolemia, unspecified; I73.9 Peripheral vascular disease, unspecified; I25.2 Old myocardial infarction; H91.92 Unspecified hearing loss, left ear; Z95.5 Presence of coronary angioplasty implant and graft; Z87.891 Personal history of nicotine dependence
CPT/HCPCS: 36415; 70450; 70496; 70498; 71045; 80053; 80061; 81001; 82306; 82550; 82607; 82746; 82948; 83615; 83735; 84100; 84443; 84484; 85025; 85610; 85730; 87086; 87181; 93005; 93880; 96374; 96375; 97161; 97530; 99285; C9113; G0378; G8978; G8980; J0360; J7040; Q9967

== ENCOUNTER 2018-03-12 12:58 | Emergency (ER) | payer MEDICARE ==
[2018-03-12 12:59] VITALS: BMI 33.5
--- NOTE | 2018-03-12 13:47 | ED PDOC ---
Arrival/HPI - General Time Seen by Provider: 03/12/18 13:24 Historian: Patient - History of Present Illness Narrative History of Present Illness (Text): 03/12/18 13:44 87yo female with pmhx of hypertension, CAD who present with complaint of right knee and right sided lower back pain . States back pain started a week ago and usually radiates to the front. the knee pain started an hour ago, when she twisted her right leg, while coming down stairs. States pain is with ambulation. Back pain is constant and worse with movement. She denies fever, chills, nausea, abdominal pain, hematuria, dysuria, chest pain any other complaint. 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.) Hx Difficulty Chewing: No Hx Epistaxis: No Hx Glaucoma: No Hx Macular Degeneration: No - Renal Hx Renal Disorder: No Hx Dialysis: No Hx Kidney Stones: No Hx Neurogenic Bladder: No Hx Pyelonephritis: No Hx Renal Cancer: No Hx Renal Failure: No - Endocrine/Metabolic Hx Endocrine Disorders: No Hx Adrenal Cancer: No Hx Diabetes Insipidus: No Hx Diabetes Mellitus Type 1: No Hx Diabetes Mellitus Type 2: No Hx Hyperthyroidism: No Hx Hypothyroidism: No Hx Systemic Lupus Erythematosus: No - Hematological/Oncological Hx Blood Transfusions: No - Integumentary Hx Dermatological Disorder: No Hx Basal Cell Carcinoma: No Hx Eczema: No Hx Melanoma: No Hx Psoriasis: No Hx Squamous Cell Carcinoma: No - Musculoskeletal/Rheumatological Hx Musculoskeletal Disorders: Yes - Gastrointestinal Hx Diverticulitis: Yes - Genitourinary/Gynecological Hx Genitourinary Disorders: No Hx Hematuria: No Hx Incontinence: No Hx Sexually Transmitted Diseases: No Hx Urinary Tract Infection: Yes (Mar 2017) - Psychiatric Hx Substance Use: No - Past Surgical History Past Surgical History: No Previous - Surgical History Other/Comment: R leg bypass - Anesthesia Hx Anesthesia Reactions: No Hx Malignant Hyperthermia: No - Suicidal Assessment Feels Threatened In Home Enviroment: No Family/Social History - Physician Review Nursing Documentation Reviewed: Yes Family/Social History: Unknown Family HX Smoking Status: Former Smoker Hx Alcohol Use: Yes (WINE) Hx Substance Use: No Hx Substance Use Treatment: No Allergies/Home Meds Allergies/Adverse Reactions: Allergies Penicillins Allergy (Intermediate, Verified 06/08/15 09:22) RASH/PAIN Review of Systems - Physician Review All systems were reviewed & negative as marked: Yes - Review of Systems Constitutional: Normal Eyes: Normal ENT: Normal Respiratory: Normal Cardiovascular: Normal Gastrointestinal: Normal Genitourinary Female: Normal Musculoskeletal: Arthralgias (Right knee), Back Pain Skin: Normal Neurological: Normal Endocrine: Normal Hemo/Lymphatic: Normal Psychiatric: Normal Physical Exam Vital Signs Reviewed: Yes Temperature: Afebrile Blood Pressure: Normal Pulse: Regular Respiratory Rate: Normal Appearance: Positive for: Well-Appearing, Non-Toxic, Comfortable Pain Distress: None Mental Status: Positive for: Alert and Oriented X 3 - Systems Exam Head: Present: Atraumatic, Normocephalic Pupils: Present: PERRL Extroacular Muscles: Present: EOMI Conjunctiva: Present: Normal Mouth: Present: Moist Mucous Membranes Neck: Present: Normal Range of Motion Respiratory/Chest: Present: Clear to Auscultation, Good Air Exchange. No: Respi ratory Distress, Accessory Muscle Use Cardiovascular: Present: Regular Rate and Rhythm, Normal S1, S2. No: Murmurs Abdomen: No: Tenderness, Distention, Peritoneal Signs Back: Present: Paraspinal Tenderness (Right sided paraspinous area). No: Midline Tenderness, Pain with Leg Raise Upper Extremity: Present: Normal Inspection. No: Cyanosis, Edema Lower Extremity: Present: NORMAL PULSES, Neurovascularly Intact. No: Edema, CALF TENDERNESS, Normal ROM (Limited on flexion), Radha's Sign, Tenderness Neurological: Present: GCS=15, CN II-XII Intact, Speech Normal Skin: Present: Warm, Dry, Normal Color. No: Rashes Psychiatric: Present: Alert, Oriented x 3, Normal Insight, Normal Concentration Medical Decision Making ED Course and Treatment: 03/12/18 18:27 PT in ED for stated history. She was neurologically intact in ED. Right knee xray IMPRESSION: Normal radiographs of the right knee. LS CT VERTEBRAE: Unremarkable. No fracture. Normal alignment. DISCS/SPINAL CANAL/NEURAL FORAMINA: L1-2: Severe disc degeneration L2-3: Severe disc degeneration and disc bulge with mild stenosis L3-4: Severe disc bulge and severe facet arthropathy. Severe central stenosis L4-5: Severe disc degeneration and facet arthropathy with severe central stenosis and bilateral foraminal stenosis L5-S1: Severe disc degeneration and osteophyte formation with mild foraminal stenosis PARASPINAL SOFT TISSUES: Unremarkable. OTHER FINDINGS: None. 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 Her pain was controlled in ED. Nick wrap applied to the knee and cane given for ambulation. She ambulated in ED with the cane Referred to ortho Disposition/Present on Arrival - Present on Arrival Any Indicators Present on Arrival: No History of DVT/PE: No History of Uncontrolled Diabetes: No Urinary Catheter: No History of Decub. Ulcer: No History Surgical Site Infection Following: None - Disposition Have Diagnosis and Disposition been Completed?: Yes Diagnosis: Knee pain, Back pain Disposition: HOME/ ROUTINE Disposition Time: 15:30 Patient Plan: Discharge Condition: STABLE Discharge Instructions (ExitCare): Low Back Pain (DC), Knee Pain (DC) Additional Instructions: Follow up with your Doctor/orthopedist Return to ED for any new or worsening symptoms Prescriptions: RX: traMADol [Ultram] 50 mg PO TID #9 tab Referrals: Matt Peterson III, MD [Medical Doctor] - Follow up with primary Forms: [employer] (Romansh)
[2018-03-12 13:51] VITALS: TEMP 98.2
--- NOTE | 2018-03-12 14:54 | CT ---
Date of service: 03/12/2018 PROCEDURE: CT Lumbar Spine without contrast HISTORY: back pain COMPARISON: None available. TECHNIQUE: Axial computed tomography images were obtained of the lumbar spine without the use of intravenous contrast. Coronal and sagittal reformatted images were created and reviewed. Radiation dose: Total exam DLP = 1142.9 mGy-cm. This CT exam was performed using one or more of the following dose reduction techniques: Automated exposure control, adjustment of the mA and/or kV according to patient size, and/or use of iterative reconstruction technique. FINDINGS: VERTEBRAE: Unremarkable. No fracture. Normal alignment. DISCS/SPINAL CANAL/NEURAL FORAMINA: L1-2: Severe disc degeneration L2-3: Severe disc degeneration and disc bulge with mild stenosis L3-4: Severe disc bulge and severe facet arthropathy. Severe central stenosis L4-5: Severe disc degeneration and facet arthropathy with severe central stenosis and bilateral foraminal stenosis L5-S1: Severe disc degeneration and osteophyte formation with mild foraminal stenosis PARASPINAL SOFT TISSUES: Unremarkable. OTHER FINDINGS: None. 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
--- NOTE | 2018-03-12 14:58 | CT ---
Date of service: 03/12/2018 PROCEDURE: CT Abdomen and Pelvis without intravenous contrast HISTORY: right sided back/flank pain COMPARISON: None. TECHNIQUE: Without contrast.. Contrast dose: Radiation dose: Total exam DLP = 915.01 mGy-cm. This CT exam was performed using one or more of the following dose reduction techniques: Automated exposure control, adjustment of the mA and/or kV according to patient size, and/or use of iterative reconstruction technique. FINDINGS: LOWER THORAX: Unremarkable. LIVER: Unremarkable. No gross lesion or ductal dilatation. GALLBLADDER AND BILE DUCTS: Unremarkable. PANCREAS: Unremarkable. No gross lesion or ductal dilatation. SPLEEN: Unremarkable. ADRENALS: Unremarkable. No mass. KIDNEYS AND URETERS: Unremarkable. No hydronephrosis. No solid mass. VASCULATURE: Unremarkable. No aortic aneurysm. Aortic calcifications BOWEL: Unremarkable. No obstruction. No gross mural thickening. There is mild diverticulosis of the sigmoid colon. APPENDIX: Unremarkable. Normal appendix. PERITONEUM: Unremarkable. No free fluid. No free air. LYMPH NODES: Unremarkable. No enlarged lymph nodes. BLADDER: Unremarkable. REPRODUCTIVE: Unremarkable. BONES: Multilevel disc degeneration. Please see report of lumbar spine done on the same day OTHER FINDINGS: None. IMPRESSION: No acute intra-abdominal findings
--- NOTE | 2018-03-12 15:20 | RAD ---
Date of service: 03/12/2018 PROCEDURE: Right Knee Radiographs. HISTORY: knee pain COMPARISON: None. FINDINGS: BONES: Normal. No fracture. JOINTS: Normal. No osteoarthritis. JOINT EFFUSION: None. OTHER FINDINGS: None. IMPRESSION: Normal radiographs of the right knee.
[2018-03-12 16:23] VITALS: BP 148/84; PULSE 70; RESP 18; O2SAT 98
== END 2018-03-12 16:10 | disposition home or self-care (01) ==
LOC: ED 12:58
DX: M25.561 Pain in right knee (principal); M54.5 Low back pain

== ENCOUNTER 2018-05-04 08:10 | Outpatient (CLI) | payer MEDICARE | END 2018-05-04 08:11 | disposition home or self-care (01) | LOC: RAD 08:10 | DX: I25.10 Atherosclerotic heart disease of native coronary artery without angina pectoris (principal) ==